=== PATIENT | female | born 1995 | race Caucasian/White ===

== ENCOUNTER 2019-07-03 15:59 | Outpatient (CLI) | payer OTHER, MEDICAID, SELFPAY ==
[2019-07-03 16:16] VITALS: BP 130/82; PULSE 111
[2019-07-03 16:30] VITALS: BP 124/74; PULSE 118
[2019-07-03 16:45] VITALS: BP 120/82; PULSE 122
[2019-07-03 16:51] VITALS: BP 124/74; PULSE 112
== END 2019-07-03 16:55 | disposition home or self-care (01) ==
LOC: ANHOBOP 16:10 → ANHOBPP 16:10
PROVIDERS: PCP Internal Medicine; Visit Provider Advanced Practice Midwife
DX: O41.8X90 Other specified disorders of amniotic fluid and membranes, unspecified trimester, not applicable or unspecified (principal)
CPT/HCPCS: 59025; 84112; 99199

== ENCOUNTER 2019-07-22 23:37 | Observation (INO) | payer OTHER, MEDICAID, SELFPAY ==
--- NOTE | 2019-07-22 23:37 | OBADM ---
This patient, Jyoti Amor, admitted to the OB room OB Post 116 for observation. Patient/family oriented to hospital policies and general routines including ID bracelet, bed and alarms, visiting hours, pain management, procedures, bathroom and other care routines, personal items, smoking policy, room service/diet, and visiting hours. Patient/Family are encouraged to report perceived risks to care and to ask questions if they do not understand what they are told or what they should do.
[2019-07-22 23:57] VITALS: BP 126/79; PULSE 110; TEMP 36.5
[2019-07-23] VITALS: BP 123/86; PULSE 111; BMI 41.1
[2019-07-23 00:30] VITALS: BP 122/81; PULSE 107
[2019-07-23 00:54] LABS: Add Urine Microscopic? YES; Appearance Urine Cloudy (Clear); Bacteria Urine Trace /hpf; Bilirubin Urine Negative (Negative); Blood Urine Negative (Negative); Color Urine Yellow (Yellow); Glucose Urine UA Negative (Negative); Ketones Urine 1+ mg/dL (Negative); Leukocyte Esterase Ur 3+ LEU/UL (Negative); Mucus Urine Few /lpf; Nitrate Urine Negative (Negative); Protein Urine 1+ mg/dL (Negative); RBC Urine 0-2 /hpf (0-2); Specific Grav Ur 1.021 (1.001-1.035); Squamous Epithelial Cell Urine Many /hpf (Few)
[2019-07-23 01:00] VITALS: BP 125/91; PULSE 107
--- NOTE | 2019-07-23 02:01 | PC.NURSE ---
Dr. Lemos reviewed strip and report given regarding contractions. pt not feeling pain with contractions. Dr. lemos states may discharge to home if pt does not have pain.
--- NOTE | 2019-07-27 07:45 | PM.OBTRLD ---
OB - Triage/Final Diagnosis Evaluation Laboratory results: Laboratory Tests 07/23/19 00:34 Urine Color Yellow Urine Appearance Cloudy H Urine pH 6.0 Ur Specific [place] 1.021 Urine Protein 1+ H Urine Glucose (UA) Negative Urine Ketones 1+ H Ur Blood (Man) Negative Urine Nitrate Negative Urine Bilirubin Negative Urine Urobilinogen 2.0 H Leukocyte Esterase Rfl 3+ H Urine RBC 0-2 Urine WBC 10-15 H Ur Squamous Epith Cells Many H Urine Bacteria Trace Urine Mucus Few H Final Diagnosis (1) contractions: Code(s): O47.9 - False labor, unspecified Status: Acute
== END 2019-07-23 01:50 | disposition home or self-care (01) ==
PROVIDERS: Admitting Provider Obstetrics & Gynecology; PCP Internal Medicine; Visit Provider Obstetrics & Gynecology
DX: O47.9 False labor, unspecified (principal); Z3A.00 Weeks of gestation of pregnancy not specified; Z79.899 Other long term (current) drug therapy
CPT/HCPCS: 81001; 87086; 87088; G0378; G0379

== ENCOUNTER 2019-08-24 06:25 | Inpatient (IN) | payer OTHER, MEDICAID, SELFPAY ==
[2019-08-24] VITALS (171 sets, daily range): BP systolic 95–156; BP diastolic 46–107; PULSE 60–227; RESP 16; TEMP 36.5–38.1; O2SAT 85–100; BMI 41.8
--- NOTE | ~2019-08-24 | US_ITS ---
EXAMINATION: US OB limited DATE: 08/25/2019 05:37 INDICATION: Retained placenta TECHNIQUE: Real-time ultrasound of the pelvis was performed. The interpreting radiologist was not pre sent for the study. COMPARISON: None. FINDINGS: Enlarged uterus consistent with state. The endometrial complex is thickened measuring 18 m m and heterogeneous, predominantly hypoechoic with a few hyperechoic foci. No vascular flow identifie d within the endometrial complex and color Doppler. IMPRESSION: 1. Continued heterogeneous endometrial complex without internal vascular flow on color Doppler with d ifferential including retained products of conception or clot. Reviewed, dictated and finalized at location A. IMPRESSION: 1. Continued heterogeneous endometrial complex without internal vascular flow o n color Doppler with differential including retained products of conception or clot.
[2019-08-24] MEDS: LACTATED RINGERS 1,000 ML 125 ML IV CONT ×3 (07:26→14:42)
[2019-08-24] MEDS: OXYTOCIN 30 UNITS/NS 500 ML 30 UNITS/500 ML BAG 6 UNITS IV CONT (07:27)
[2019-08-24 07:34] LABS: Basophils Percent Auto 0.4 % (0.2-1.2); Eosinophils Absolute Auto 0.1 K/mm3 (0-0.3); Eosinophils Percent Auto 0.6 % (0-4.4); Hematocrit 35.9 % (37.0-47.0); Hemoglobin 11.6 g/dL (12.0-15.0); Lymphocytes Absolute Auto 2.62 K/mm3 (0.9-3.2); Mean Corpuscular HGB Conc 32.3 g/dl (32-36); Mean Corpuscular Hemoglobin 26.3 pg (26-34); Mean Corpuscular Volume 81.4 fl (80-100); Mean Platelet Volume 12.2 fl (7.4-10.4); Monocytes Absolute Auto 0.8 K/mm3 (0.1-0.6); Monocytes Percent Auto 7.5 % (2.6-8.5); Neutrophils Absolute Auto 6.9 K/mm3 (1.3-6.7); Neutrophils Percent Auto 65.5 % (45.5-73.1); Platelet Count Result 239 k/mm3 (150-375); Red Blood Count 4.41 M/mm3 (4.2-5.4); White Blood Count 10.5 K/mm3 (4.5-10.0)
--- NOTE | 2019-08-24 07:59 | LDADM ---
This patient, Jyoti Amor, was admitted to Labor/Delivery/Recovery 105 on 08/24/19 at 06:25. Plans for labor, pain management and were discussed with patient. Patient/family oriented to hospital policies and general routines including ID bracelet, bed and alarms, visiting hours, pain management, procedures, bathroom and other care routines, personal items, smoking policy, room service/diet and guest tray routines, security routines, call light, and visiting hours. Patient/Family are encouraged to report perceived risks to care and to ask questions if they do not understand what they are told or what they should do. See OBIX for further documentation.
--- NOTE | 2019-08-24 08:12 | WPDOBADMIT ---
Obstetrics - Admit Note Admission Note: 24 y/o G1 here for elective induction of labor AROM performed. Clear odorless fluid Cervix record reviewed. No pertinent additions to the history and/or any subsequent changes in the physical findings that are not consistent with the expected course of the were found. Additions to the history and/or subsequent changes in the physical findings follow. None.
--- NOTE | 2019-08-24 09:20 | P.PNAN_ITS ---
Anes - Eval Pre Procedure Procedure: Labor epidural Date/Time: 08/24/19 09:20 Surgeon: Toño Schaefer M.D. Preop Diagnosis: pain during labor Pre Op Diagnosis: INDUCTION OF LABOR Patient Data Age: 24 Gender: F Height: 1.67 m Weight: 116.7 kg Last Vital Signs Pulse 111 H 08/24/19 09:19 BP 142/93 H 08/24/19 09:19 Allergies Allergy/AdvReac Type Severity Reaction Status Date / Time Penicillins Allergy Hives Verified 08/03/19 14:31 Home Medications Medication Instructions Recorded Confirmed Type PNV cmb#95-ferrous fumarate-FA 1 tablet PO DAILY 07/23/19 07/23/19 History [] Laboratory Tests 08/24/19 08/24/19 08/24/19 07:21 07:21 07:21 WBC 10.5 K/mm3 H K/mm3 (4.5-10.0) RBC 4.41 M/mm3 M/mm3 (4.2-5.4) Hgb 11.6 g/dL L g/dL (12.0-15.0) Hct 35.9 % L % (37.0-47.0) MCV 81.4 fl fl (80-100) MCH 26.3 pg pg (26-34) MCHC 32.3 g/dl g/dl (32-36) RDW 14.0 % % (11.5-14.5) Plt Count 239 k/mm3 k/mm3 (150-375) MPV 12.2 fl H fl (7.4-10.4) Immature Gran % (Auto) 1.0 % H % (0-0.5) Neut % (Auto) 65.5 % % (45.5-73.1) Lymph % (Auto) 25.0 % % (18.3-44.2) [place] % (Auto) 7.5 % % (2.6-8.5) Eos % (Auto) 0.6 % % (0-4.4) Baso % (Auto) 0.4 % % (0.2-1.2) Lymph # (Auto) 2.62 K/mm3 K/mm3 (0.9-3.2) [place] # (Auto) 0.8 K/mm3 H K/mm3 (0.1-0.6) Eos # (Auto) 0.1 K/mm3 K/mm3 (0-0.3) Baso # (Auto) 0.0 K/mm3 K/mm3 (0.0-0.1) Abs Immat Gran (auto) 0.10 K/mm3 H K/mm3 (0.00-0.031) Absolute Neuts (auto) 6.9 K/mm3 H K/mm3 (1.3-6.7) Absolute Nucleated RBC 0.0 K/mm3 K/mm3 (0.0-0.012) Nucleated RBC % 0.0 % % (0.0-0.2) RPR Pending Blood Type O Positive Antibody Screen Negative Patient hx anesthesia problems: none Family hx anesthesia problems: none PMFSH Past Medical History Medical History (Updated 08/24/19 @ 09:21 by Nahed Joe CRNA) IUP (intrauterine ), incidental Morbid obesity with BMI of 40.0-44.9, adult Family History Family History (Updated 08/03/19 @ 14:32 by Kristin Anand RN) Father Throat cancer Hypertension Grandparent Diabetes mellitus Social History Social History Smoking status: Never smoker Substance use: never Gender identity (if verbalized by the patient): Female Spiritual care concerns: No Exam Day of Procedure 08/24/19 09:20
[2019-08-24] MEDS: CLINDAMYCIN 900 MG/NS 50 ML 900 MG/50 ML PIGGYBACK 50 MG IVPB (21:48)
--- NOTE | 2019-08-24 23:40 | PM.OBPRVD ---
OB - Delivery Note Procedure Delivery date: 08/24/19 Intrapartal events: None Induction method: per pitocin protocol Delivery monitor: external FHT and external uterine Route of delivery: Episiotomy description: None Laceration description: None Estimated blood loss (mL): 312 Anesthesia type: Epidural [place] Baby Date of : 08/24/19 Time of : 23:21 Weeks of gestation at delivery: 40 Infant gender: Female Weight (pounds): 9 Weight (ounces): 11 presentation: vertex position: Left Occiput Anterior Placenta delivery description: Spontaneous score one minute: 8 score five minutes: 9 Narrative: Mother and baby in stable condition. Cord clamped at 3 minutes. Cord gasses collected and handed off to staff.
[2019-08-24] MEDS: OXYTOCIN 30 UNITS/NS 500 ML 30 UNITS/500 ML BAG 125 UNITS IV CONT (23:50)
[2019-08-25] VITALS (17 sets, daily range): BP systolic 102–136; BP diastolic 64–89; PULSE 96–120; RESP 16–20; TEMP 36.3–37; O2SAT 77–100
[2019-08-25] MEDS: BENZOCAINE 20% AER SPR (*SP) 56 GM CAN 1 SPRAY TOPICAL (01:34)
[2019-08-25] MEDS: WITCH HAZEL 40 PADS 1 PAD TOPICAL (01:34)
[2019-08-25] MEDS: IBUPROFEN 600 MG TABLET PO ×3 (01:34→15:57)
--- NOTE | 2019-08-25 02:08 | OBPPTRN ---
Patient transferred to post room #285 via wheelchair with baby in bassinet. Support person present. Oriented to unit, room, information board, rooming in, admission packet and security measures. Patient verbalizes understanding.
[2019-08-25 04:36] LABS: Mean Corpuscular HGB Conc 30.8 g/dl (32-36); Mean Corpuscular Hemoglobin 26.2 pg (26-34); Mean Platelet Volume 11.5 fl (7.4-10.4); Platelet Count Result 154 k/mm3 (150-375); Red Blood Count 2.14 M/mm3 (4.2-5.4); Red Cell Distribution Width 14.2 % (11.5-14.5); White Blood Count 13.6 K/mm3 (4.5-10.0)
[2019-08-25 04:40] LABS: Hematocrit 18.2 % (37.0-47.0); Hemoglobin 5.6 g/dL (12.0-15.0)
[2019-08-25 04:46] LABS: INR 1.3; Prothrombin Time 16.1 Seconds (11.1-14.7)
[2019-08-25 04:47] LABS: Partial Thromboplastin Time 28.7 SECONDS (22.3-36.8)
--- NOTE | 2019-08-25 04:49 | WPDPN ---
Progress Note: A&P Assessment and Plan (1) hemorrhage: Code(s): O72.1 - Other immediate hemorrhage Status: Acute Assessment and Plan: Preliminary hemoglobin 5.6. Patient agrees to blood transfusion. Type and cross and transfuse 2 units PRBCs. Repeat H&H since it was drawn through IV site (possibly diluted), although her QBL total is 1623. Most likely her true blood count is lower than current labs will show, so she likely does need transfusion. Check ultrasound to look for retained POCs, although most likely bleeding due to uterine atony. Review of Systems Review of Systems: All systems reviewed & are unremarkable except as noted in HPI and below (HPI) Exam Const: General: no acute distress and uncomfortable Resp: Auscultation: clear to auscultation bilaterally Cardio: Rate: tachycardic Rhythm: regular rhythm GI: Inspection: non-distended GI Palp: Yes Soft to palpation and No Tenderness to palpation present (GI) Other: Uterine fundus firm and 2-3 cm below umbilicus : Speculum Exam - Vagina: No vaginal bleeding Other: No active bleeding once I arrived. No gush or even trickle with fundal massage Extrem: General: no edema Psych: Mental Status: mental status grossly normal Objective Data Vital Signs Vital Signs: Vital Signs - 24 hr 08/24/19 06:53 08/24/19 07:00 08/24/19 07:01 Temperature 36.6 C Pulse Rate 126 H 126 H Blood Pressure 135/89 135/83 Pulse Oximetry 08/24/19 07:31 08/24/19 08:31 08/24/19 08:50 Temperature 36.6 C Pulse Rate 114 H 109 H Blood Pressure 132/93 H 129/98 H Pulse Oximetry 08/24/19 09:01 08/24/19 09:19 08/24/19 09:31 Temperature Pulse Rate 113 H 111 H 107 H Blood Pressure 129/93 H 142/93 H 135/93 H Pulse Oximetry 08/24/19 09:43 08/24/19 10:01 08/24/19 10:31 Temperature 36.5 C Pulse Rate 107 H 105 H Blood Pressure 137/96 H 142/85 H Pulse Oximetry 08/24/19 11:01 08/24/19 11:31 08/24/19 12:01 Temperature Pulse Rate 109 H 134 H 100 Blood Pressure 147/107 H 129/81 113/71 Pulse Oximetry 08/24/19 13:01 08/24/19 13:45 08/24/19 13:57 Temperature Pulse Rate 120 H 98 Blood Pressure 141/85 H 148/88 H Pulse Oximetry 100 08/24/19 14:01 08/24/19 14:02 08/24/19 14:13 Temperature 36.7 C Pulse Rate 101 H Blood Pressure 147/92 H Pulse Oximetry 100 99 08/24/19 14:14 08/24/19 14:18 08/24/19 14:20 Temperature Pulse Rate 126 H 101 H Blood Pressure 145/84 H 127/91 H Pulse Oximetry 100 08/24/19 14:21 08/24/19 14:23 08/24/19 14:25 Temperature Pulse Rate 100 101 H 102 H Blood Pressure 126/87 140/86 156/84 H Pulse Oximetry 100 08/24/19 14:27 08/24/19 14:28 08/24/19 14:29 Temperature Pulse Rate 106 H 98 Blood Pressure 133/81 134/88 Pulse Oximetry 100 08/24/19 14:31 08/24/19 14:33 08/24/19 14:35 Temperature Pulse Rate 102 H 103 H 108 H Blood Pressure 134/80 132/79 125/74 Pulse Oximetry 100 08/24/19 14:37 08/24/19 14:38 08/24/19 14:39 Temperature Pulse Rate 114 H 121 H Blood Pressure 122/63 118/59 L Pulse Oximetry 100 08/24/19 14:41 08/24/19 14:43 08/24/19 14:45 Temperature Pulse Rate 115 H 119 H 117 H Blood Pressure 111/58 L 121/56 L 113/57 L Pulse Oximetry 100 08/24/19 14:47 08/24/19 14:48 08/24/19 14:49 Temperature Pulse Rate 121 H 115 H Blood Pressure 112/60 107/57 L Pulse Oximetry 99 08/24/19 14:51 08/24/19 14:53 08/24/19 14:55 Temperature Pulse Rate 117 H 120 H 123 H Blood Pressure 116/46 L 108/59 L 106/61 Pulse Oximetry 100 08/24/19 14:57 08/24/19 14:58 08/24/19 14:59 Temperature Pulse Rate 117 H 112 H Blood Pressure 113/60 108/57 L Pulse Oximetry 100 08/24/19 15:01 08/24/19 15:03 08/24/19 15:05 Temperature Pulse Rate 112 H 114 H 113 H Blood Pressure 107/54 L 107/60 95/52 L Pulse Oximetry 100 08/24/19 15:07 08/24/19 15:08 08/24/19 15:09 Te
[2019-08-25 04:54] LABS: Hematocrit 25.1 % (37.0-47.0); Hemoglobin 7.9 g/dL (12.0-15.0); Mean Corpuscular HGB Conc 31.5 g/dl (32-36); Mean Corpuscular Hemoglobin 26.2 pg (26-34); Mean Corpuscular Volume 83.1 fl (80-100); Mean Platelet Volume 11.8 fl (7.4-10.4); Platelet Count Result 199 k/mm3 (150-375); Red Blood Count 3.02 M/mm3 (4.2-5.4); Red Cell Distribution Width 14.3 % (11.5-14.5); White Blood Count 17.3 K/mm3 (4.5-10.0)
--- NOTE | 2019-08-25 05:03 | PC.NURSE ---
0330: while urinating, patient passed large clot into toilet. weighed 183g. charge nurse alerted 0350: pt felt rectal pressure; and asked for help to bathroom ; while urinating, another clot was passed (184g); called Priyanka Cardenas RN to bathroom. patient fainted while on toilet; revived with ammonia and helped back to bed. Team OB summoned at this time 0405 fundal massage; Clots expressed by OB nurse 0409 Fentanyl 100 0409 Pit opened to 500ml/hr, NS started at 999 ml/hr 0411 methergine IM .2mg 0416 523g clots removed 0420 O2 sat 100, HR 130 0426 130/86 O2 sat 97%, HR 105, 0426 labs drawn Left AC 0428 warm blankets 0435 pad/towel: 142g 0434 Dr Lemos arrived. 0435 127/82, HR 116, O@ 97% 0444 Redraw labs 0448 Labs reordered, US ordered, 2 units PRBC ordered
--- NOTE | 2019-08-25 05:03 | PC.NURSE ---
0405- called Kayleen Pierce CNMW- pt passing large blood clots and continuing to bleed, nurse at bedside. Order for CBC, PT, PTT/INR received. notify Dr. Lemos. 408- called Dr. Lemos- informed of situation, order received for US for retained placenta STAT. Dr. Lemos coming in to evaluate pt. [phone]- called [facility]- [employer] Switchboard Operator- she will call US to have them come in for bedside US STAT to check for retained placenta.
[2019-08-25 05:05] LABS: INR 1.1; Prothrombin Time 13.9 Seconds (11.1-14.7)
[2019-08-25 05:07] LABS: Partial Thromboplastin Time 25.9 SECONDS (22.3-36.8)
[2019-08-25] MEDS: SODIUM CHLORIDE 0.9% IV 1,000 ML 150 ML (05:21)
--- NOTE | 2019-08-25 08:49 | WPDANLDPN2 ---
Anes-Prog Note L&D Date/Time: 08/25/19 08:49 Comfortable throughout: labor and delivery Neuraxial method: epidural Epidural/Spinal procedure site: clean & non-tender Neuro status: Neuro function grossly intact. Cardiovascular status: normal Respiratory status: normal Airway patency: baseline Mental status: baseline Post-Op hydration status: normal Vital Signs: Last Vital Signs Temp 98.3 F 08/24/19 22:19 Pulse 116 H 08/25/19 04:35 BP 127/82 08/25/19 04:35 Pulse Ox 97 08/25/19 04:35 I/O: Intake & Output 08/24/19 08/25/19 08/25/19 23:59 07:59 15:59 Intake Total 1650 Output Total 1305 Balance 1650 -1305 Post-procedural complaints: none Patient feedback: Patient satisfied with anesthetic care.
[2019-08-25] MEDS: MULTIVIT/MIN/PREN/FOL AC/IRON TABLET 1 TAB PO (09:28)
[2019-08-25] MEDS: DOCUSATE SODIUM 100 MG CAPSULE PO ×2 (09:28→15:57)
[2019-08-25] MEDS: POLYSACCHARIDE IRON COMPLEX 150 MG CAPSULE PO ×2 (09:28→15:57)
[2019-08-25 10:46] LABS: Rapid Plasma Reagin Non-Reactive (NonReactive)
[2019-08-25] MEDS: LANOLIN (LANSINOH) 7.5 GM CREAM 1 APPLIC TOPICAL (15:59)
--- NOTE | 2019-08-25 17:04 | PC.NURSE ---
Pt received 2 units of blood today; No problems during the transfusion, and pt reports feeling much better. She has been up to the bathroom, and is asymptomatic, doing well.
[2019-08-25 19:23] LABS: Hemoglobin 8.4 g/dL (12.0-15.0)
[2019-08-26 08:00] VITALS: BP 121/82; PULSE 95; RESP 18; TEMP 36.6
[2019-08-26] MEDS: BENZOCAINE 20% AER SPR (*SP) 56 GM CAN 1 SPRAY TOPICAL (08:53)
[2019-08-26] MEDS: WITCH HAZEL 40 PADS 1 PAD TOPICAL (08:53)
[2019-08-26] MEDS: POLYSACCHARIDE IRON COMPLEX 150 MG CAPSULE PO ×2 (08:53→16:37)
[2019-08-26] MEDS: DOCUSATE SODIUM 100 MG CAPSULE PO ×2 (08:54→16:37)
[2019-08-26] MEDS: IBUPROFEN 600 MG TABLET PO ×2 (08:54→14:23)
--- NOTE | 2019-08-26 10:35 | P.PNOB_ITS ---
OB - PN: Subj Subjective Date/time seen: 08/26/19 10:35 OB - PN: Obj Data Labs CBC & Chem 7: 08/25/19 19:15 Labs: Laboratory Results - last 24 hr 08/24/19 08/24/19 08/25/19 07:21 07:21 19:15 Hgb 8.4 L Hct 26.0 L RPR Non-reactive Blood Type O Positive Antibody Screen Negative Crossmatch See Detail OB - PN A/P Plan day: 2 Plan: routine care and discharge home (Follow up in 4 weeks. ) Comments: Bleeding precautions and post pph precautions discussed. Time Spent With Patient Time: Total time spent is greater than 50% in coordination of care (as documente d) at patient's floor/unit and/or counseling patient: Time with patient: less than 15 minutes Review of Systems Review of Systems: All systems reviewed & are unremarkable except as noted in HPI and below Exam Narrative: Exam Narrative: Pt ambulating w/o difficulty. No c/o feeling light headed or dizzy. Flow is controlled. Fundus firm. Const: General: comfortable Chest: Breast/axilla inspection: normal inspection of the breasts Resp: Effort & Inspection: normal respiratory effort Cardio: Rate: regular rate GI: Auscultation: normal bowel sounds Psych: Appearance: grossly normal Affect: normal affect Attitude: cooperative Judgement: Good judgement present (Psych)
--- NOTE | 2019-08-26 12:00 | PC.NURSE ---
Patient viewed the discharge video Mother & Baby Care, The First Two Weeks . Patient was given the opportunity and encouraged to ask questions. Patient verbalized understanding of information shared and has been given the mother/baby guide for home reference.
--- NOTE | 2019-08-26 14:45 | PC.NURSE ---
Self care and infant care discharge instructions given including follow up visit date and time. Very pleasant and cooperative. No questions or concerns verbalized. FOB at side.
[2019-08-26] MEDS: MEASLES,MUMPS,RUBELLA VACCINE 0.5 ML VIAL SUB-Q (16:37)
[2019-08-28 08:43] VITALS: BP 139/82; PULSE 98; RESP 20; TEMP 37.3; O2SAT 100
--- NOTE | 2019-09-08 12:11 | PM.OBDSVD ---
DS: Admitting Diagnosis Admitting Diagnosis Admitting Diagnosis: Encounter for supervision of normal , unspecified, third trimester OB - DS: Summary OB Procedures : None OB Procedures Intrapartum: Spontaneous Vag Delivery OB Procedures: : Transfusion (PP Hemorrhage) and Other Time Spent with Patient Time attestation: Total time spent providing and/or coordinating discharge services: Discharge Plan Discharge Attending physician on discharge: Kayleen Pierce Consulting providers: Kayleen Pierce ; [place] Discharging Clinician: Kayleen Pierce Patient Disposition: Home, Self-Care Activity: may drive after 2 weeks and pelvic rest Diet: as tolerated Discharge Instructions: Education: Mom and Baby Guide Given to: Mother Follow-Up: Call your delivering provider's office for an appointment to be seen in: 1 Week Mom and baby should come to the [facility] for the follow-up appointment. Appointment Date/Time: August 28, 2019 at 10:00 am What to expect at your follow-up visit: Blood Pressure Check Physical Assessment Call [phone] if you are unable to keep your appointment time. BREAST CARE: 1. Wear a snug supportive bra. 2. For engorgement discomfort: Breast Feeding: A. Apply warm moist washcloths B. Express milk as needed to relieve engorgement C. Wear loose clothing Bottle Feeding: A. May apply ice packs 3. For sore nipples: A. Identify correct latch-on B. Apply warm moist washcloths before and after nursing C. Air dry nipples after nursing D. May apply Lansinoh cream to nipples ABDOMINAL INCISION: (if applicable) 1. Allow incision to air dry 2. Do NOT use lotions for powders on your incision 3. When showering, allow soap and water to run over the incision, but do not wash incision EPISIOTOMY/PERINEAL CARE: 1. Until bleeding stops, use your sofiya bottle after urinating 2. Change your pad frequently throughout the day 3. You may take sitz baths several times a day (fill your bathtub with warm water and soak for 20 minutes.) Do NOT bathe in the water 4. No tub baths until seen by your physician - You may shower ACTIVITY: 1. Rest as much as possible. 2. Do not exercise or lift anything heavier than your baby (such as laundry or other children.) 3. Avoid stairs or driving as much as possible. 4. Do not put anything into the vagina. No douching, tampons, or sexual activity until seen by physician. NOTIFY PHYSICIAN IF YOU HAVE ANY QUESTIONS OR IF ANY OF THE FOLLOWING SYMPTOMS OCCUR: 1. If your episiotomy becomes red, swollen, or more painful than what you have experienced in the hospital. 2. If your vaginal bleeding becomes foul smelling. 3. If your vaginal bleeding becomes more heavy than a period or if your bleeding changes from pink to bright red. However, you may pass an occasional walnut-sized clot once or twice for the first week . 4. If you experience a sharp, shooting pain in you calves. 5. If you discover a hard, reddened area on your breast or if you experience flu-like symptoms. DIET: 1. Eat regular, well-balanced meals. 2. Drink plenty of fluids daily. If , drink to thirst. Patient Instructions: Antibiotic Form Stand Alone Forms: General Discharge Information Follow-up/Referrals: Kayleen Pierce CNM [Certified Nurse Restaurant Line Server] - Discharge Medications: New polysaccharide iron complex 150 mg iron Capsule 150 mg PO BIDWM Qty: 60 RF: 0 Continued PNV cmb#95-ferrous fumarate-FA [] 28 mg iron- 800 mcg Tablet 1 tablet PO DAILY RF: 0 Date of admission: 08/24/19 06:25 Primary Care Provider: Stanley Patrick Admitting Provider: Rory Schaefer Discharge Date/Time: 08/26/19 16:53 Attending physician on admission: Rory Schaefer
== END 2019-08-26 16:53 | disposition home or self-care (01) | DRG 806 ==
LOC: ANHLDR 06:35 → ANHOB2 08-25 02:18
PROVIDERS: Obstetrics & Gynecology; Admitting Provider Obstetrics & Gynecology; PCP Internal Medicine; Visit Provider Obstetrics & Gynecology
DX: O99.214 Obesity complicating childbirth (principal); O75.2 Pyrexia during labor, not elsewhere classified; Z37.0 Single live birth; Z3A.39 39 weeks gestation of pregnancy; E66.01 Morbid (severe) obesity due to excess calories; O72.1 Other immediate postpartum hemorrhage
CPT/HCPCS: 36415; 36430; 76815; 85014; 85018; 85025; 85027; 85610; 85730; 86592; 86850; 86900; 86901; 86923; 90710; A9270; J0131; J2210; J2590; J2795; J3010; J7030; J7120; P9016

== ENCOUNTER 2019-08-29 18:15 | Observation (INO) | payer OTHER, MEDICAID, SELFPAY ==
--- NOTE | 2019-08-29 18:16 | PC.NURSE ---
samm nim called unit and stated to run pi labs on pt upon pt arrival and to call cnm w results.
[2019-08-29 19:00] VITALS: BP 131/81; PULSE 79; TEMP 37.1
[2019-08-29 19:38] LABS: Basophils Percent Auto 0.3 % (0.2-1.2); Eosinophils Absolute Auto 0.1 K/mm3 (0-0.3); Eosinophils Percent Auto 1.4 % (0-4.4); Hematocrit 26.9 % (37.0-47.0); Hemoglobin 8.4 g/dL (12.0-15.0); Immature Granulocyte Absolute 0.62 K/mm3 (0.00-0.031); Immature Granulocyte Percent A 6.3 % (0-0.5); Lymphocytes Absolute Auto 2.09 K/mm3 (0.9-3.2); Lymphocytes Percent Auto 21.1 % (18.3-44.2); Mean Corpuscular HGB Conc 31.2 g/dl (32-36); Mean Corpuscular Hemoglobin 27.5 pg (26-34); Mean Corpuscular Volume 87.9 fl (80-100); Mean Platelet Volume 10.3 fl (7.4-10.4); Monocytes Absolute Auto 0.6 K/mm3 (0.1-0.6); Monocytes Percent Auto 6.5 % (2.6-8.5); Neutrophils Absolute Auto 6.4 K/mm3 (1.3-6.7); Neutrophils Percent Auto 64.4 % (45.5-73.1); Nucleated Red Blood Cells Absolute Auto 0.1 K/mm3 (0.0-0.012); Nucleated Red Blood Cells Perc 0.6 % (0.0-0.2); Platelet Count Result 343 k/mm3 (150-375); Red Blood Count 3.06 M/mm3 (4.2-5.4); Red Cell Distribution Width 16.9 % (11.5-14.5); White Blood Count 9.9 K/mm3 (4.5-10.0)
[2019-08-29 19:51] LABS: Alanine Aminotransferase 73 U/L (4-35); Albumin Level 3.4 g/dL (3.5-5.1); Alkaline Phosphatase 115 U/L (38-126); Aspartate Amino Transferase 72 U/L (14-36); Bilirubin,Total < 0.1 mg/dL (0.2-1.3); Blood Urea Nitrogen 10 mg/dL (7-17); Calcium 8.7 mg/dL (8.4-10.2); Carbon Dioxide 22 mmol/L (22-30); Chloride 111 mmol/L (98-107); Estimated Glomerular Filt Rate > 60; Glucose 91 mg/dL (65-105); Potassium 4.2 mmol/L (3.4-5.0); Sodium 139 mmol/L (137-145)
[2019-08-29 19:52] LABS: Anisocytosis 2+ (NORMAL); Hypochromasia 1+ (NORMAL); Platelet Estimate Adequate (Adequate)
[2019-08-29 20:01] LABS: Add Urine Microscopic? YES; Appearance Urine Cloudy (Clear); Bacteria Urine Trace /hpf; Bilirubin Urine Negative (Negative); Blood Urine 3+ (Negative); Color Urine Yellow (Yellow); Glucose Urine UA Negative (Negative); Ketones Urine Negative (Negative); Leukocyte Esterase Ur 3+ LEU/UL (NEGATIVE); Mucus Urine Rare /lpf; Nitrate Urine Negative (Negative); Protein Urine Negative (Negative); RBC Urine 51-75 /hpf (0-2); Specific Grav Ur 1.012 (1.001-1.035); Squamous Epithelial Cell Urine Moderate /hpf (Few); Urobilinogen Urine Negative mg/dL (<2.0); WBC Urine 21-30 /hpf (0-3)
[2019-08-29 20:03] LABS: Creatinine Urine 54.4 mg/dL; Total Protein Urine Random 21 mg/dL
[2019-08-29 21:00] VITALS: BP 142/100; PULSE 92
[2019-08-29 21:34] VITALS: BP 135/93; PULSE 76
[2019-08-29 22:00] VITALS: BP 134/96; PULSE 90
[2019-08-29 22:30] VITALS: BP 140/89; PULSE 78
[2019-08-30 02:15] VITALS: BP 133/78; PULSE 84
[2019-08-30 02:30] LABS: Basophils Percent Auto 0.4 % (0.2-1.2); Eosinophils Absolute Auto 0.2 K/mm3 (0-0.3); Eosinophils Percent Auto 1.5 % (0-4.4); Hematocrit 25.9 % (37.0-47.0); Immature Granulocyte Absolute 0.47 K/mm3 (0.00-0.031); Immature Granulocyte Percent A 4.7 % (0-0.5); Lymphocytes Absolute Auto 2.82 K/mm3 (0.9-3.2); Mean Corpuscular HGB Conc 30.9 g/dl (32-36); Mean Corpuscular Hemoglobin 27.5 pg (26-34); Mean Platelet Volume 10.2 fl (7.4-10.4); Monocytes Absolute Auto 0.7 K/mm3 (0.1-0.6); Monocytes Percent Auto 7.1 % (2.6-8.5); Neutrophils Absolute Auto 5.9 K/mm3 (1.3-6.7); Neutrophils Percent Auto 58.3 % (45.5-73.1); Nucleated Red Blood Cells Perc 0.4 % (0.0-0.2); Platelet Count Result 315 k/mm3 (150-375); Red Blood Count 2.91 M/mm3 (4.2-5.4); Red Cell Distribution Width 16.8 % (11.5-14.5); White Blood Count 10.1 K/mm3 (4.5-10.0)
[2019-08-30 02:43] LABS: Alanine Aminotransferase 66 U/L (4-35); Albumin Level 3.3 g/dL (3.5-5.1); Alkaline Phosphatase 109 U/L (38-126); Aspartate Amino Transferase 61 U/L (14-36); Bilirubin,Total < 0.1 mg/dL (0.2-1.3); Blood Urea Nitrogen 11 mg/dL (7-17); Calcium 8.6 mg/dL (8.4-10.2); Carbon Dioxide 23 mmol/L (22-30); Chloride 109 mmol/L (98-107); Estimated Glomerular Filt Rate > 60; Glucose 85 mg/dL (65-105); Potassium 3.8 mmol/L (3.4-5.0); Sodium 139 mmol/L (137-145); Uric Acid 5.3 mg/dL (2.5-7.5)
[2019-08-30 07:55] VITALS: RESP 20; TEMP 37.2
[2019-08-30 07:56] VITALS: BP 128/90; PULSE 91
--- NOTE | 2019-08-30 08:36 | PM.IMHP ---
H&P: HPI History of Present Illness Chief complaint: PP PIH Narrative: Jyoti Amor is a 24 year old female who presented with headache. She was found to have elevated blood pressure with elevated ast/alt. Review of Systems Review of Systems: All systems reviewed & are unremarkable except as noted in HPI and below PMFSH Past Medical History Medical History IUP (intrauterine ), incidental Morbid obesity with BMI of 40.0-44.9, adult Family History Family History Father Throat cancer Hypertension Grandparent Diabetes mellitus Social History Social History (System 08/25/19 @ 13:47 by Jewell Boswell) Smoking status: Never smoker Substance use: never Gender identity (if verbalized by the patient): Female Spiritual care concerns: No Meds Home Medications and Allergies Home Medications Medication Instructions Recorded Confirmed Type PNV cmb#95-ferrous fumarate-FA 1 tablet PO DAILY 07/23/19 07/23/19 History [] polysaccharide iron complex 150 mg PO BIDWM #60 cap 08/26/19 Rx Allergies Allergy/AdvReac Type Severity Reaction Status Date / Time Penicillins Allergy Hives Verified 08/25/19 13:47 Vital Signs Vital Signs - 24 hr 08/29/19 19:00 08/29/19 21:00 08/29/19 21:34 Temperature 98.8 F Pulse Rate 79 92 76 Blood Pressure 142/100 H 135/93 H Blood Pressure [Right Arm] 131/81 08/29/19 22:00 08/29/19 22:30 08/30/19 02:15 Temperature Pulse Rate 90 78 84 Blood Pressure 134/96 H 140/89 133/78 Blood Pressure [Right Arm] 08/30/19 07:56 Temperature Pulse Rate 91 Blood Pressure 128/90 Blood Pressure [Right Arm] Exam Const: General: no acute distress Neck: Neck: supple and no JVD Resp: Effort & Inspection: normal respiratory effort Auscultation: clear to auscultation bilaterally Skin: General skin exam: normal color Neuro: General: gait normal and deep tendon reflexes 2+ bilaterally Cognition (Neuro): normal cognition Speech: normal speech Extrem: General: normal to inspection Psych: Mental Status: mental status grossly normal Affect: normal affect H&P: Results Labs Labs: Short CBC 08/29/19 08/30/19 Range/Units 19:30 02:23 WBC 9.9 10.1 H (4.5-10.0) K/mm3 Hgb 8.4 L 8.0 L (12.0-15.0) g/dL Hct 26.9 L 25.9 L (37.0-47.0) % Plt Count 343 D 315 (150-375) k/mm3 BMP 08/29/19 08/30/19 19:30 02:23 Sodium 139 139 Potassium 4.2 3.8 Chloride 111 H 109 H Carbon Dioxide 22 23 BUN 10 11 Creatinine 0.60 L 0.60 L Glucose 91 85 Calcium 8.7 8.6 Liver Function 08/29/19 08/30/19 Range/Units 19:30 02:23 Total Bilirubin < 0.1 L < 0.1 L (0.2-1.3) mg/dL AST 72 H 61 H (14-36) U/L ALT 73 H 66 H (4-35) U/L Alkaline Phosphatase 115 109 (38-126) U/L Albumin 3.4 L 3.3 L (3.5-5.1) g/dL Urine 08/29/19 Range/Units 19:30 Urine Color Yellow (Yellow) Urine Appearance Cloudy H (Clear) Urine pH 6.0 (5.0-9.0) Ur Specific [place] 1.012 (1.001-1.035) Urine Protein Negative (Negative) mg/dL Urine Glucose (UA) Negative (Negative) mg/dL Assessment and Plan Assessment and plan (1) hypertension: Code(s): O16.5 - Unspecified maternal hypertension, complicating the puerperium Status: Acute Additional Plan Pt is feeling much better today. Headache has resolved. BP improving. LFT's have decreased slightly. Will await consult with Dr Schaefer.
== END 2019-08-30 09:50 | disposition home or self-care (01) ==
LOC: ANHOBOP 18:26 → ANHOBPP 20:59 → ANHOBOP 08-30 11:53 → ANHOBPP 08-30 11:53
PROVIDERS: Advanced Practice Midwife; Admitting Provider Obstetrics & Gynecology; PCP Internal Medicine; Visit Provider Obstetrics & Gynecology
DX: O16.5 Unspecified maternal hypertension, complicating the puerperium (principal)
CPT/HCPCS: 36415; 80053; 81001; 82570; 84156; 84550; 85025; 87077; 87086; 87088; 87186; A9270; G0378; G0379

== ENCOUNTER 2020-09-11 20:07 | Outpatient (CLI) | payer OTHER, SELFPAY ==
[2020-09-11 20:30] VITALS: BP 128/78; PULSE 120
[2020-09-11 20:45] VITALS: BP 117/71; PULSE 123
[2020-09-11 20:52] LABS: Basophils Percent Auto 0.2 % (0.2-1.2); Eosinophils Percent Auto 0.4 % (0-4.4); Hematocrit 35.9 % (37.0-47.0); Hemoglobin 11.5 g/dL (12.0-15.0); Immature Granulocyte Absolute 0.09 K/mm3 (0.00-0.031); Immature Granulocyte Percent A 0.9 % (0-0.5); Lymphocytes Absolute Auto 2.16 K/mm3 (0.9-3.2); Lymphocytes Percent Auto 21.5 % (18.3-44.2); Mean Corpuscular Hemoglobin 26.4 pg (26-34); Mean Corpuscular Volume 82.3 fl (80-100); Mean Platelet Volume 11.1 fl (7.4-10.4); Monocytes Absolute Auto 0.7 K/mm3 (0.1-0.6); Monocytes Percent Auto 7.3 % (2.6-8.5); Neutrophils Percent Auto 69.7 % (45.5-73.1); Platelet Count Result 234 k/mm3 (150-375); Red Blood Count 4.36 M/mm3 (4.2-5.4); Red Cell Distribution Width 14.5 % (11.5-14.5); White Blood Count 10.1 K/mm3 (4.5-10.0)
[2020-09-11 20:58] LABS: Add Urine Microscopic? YES; Amorphous Sediment Urine Few; Appearance Urine Cloudy (Clear); Bacteria Urine Trace /hpf; Bilirubin Urine Negative (Negative); Blood Urine Negative (Negative); Color Urine Yellow (Yellow); Glucose Urine UA Negative (Negative); Ketones Urine Negative (Negative); Leukocyte Esterase Ur 2+ LEU/UL (NEGATIVE); Mucus Urine Moderate /lpf; Nitrate Urine Negative (Negative); Protein Urine 1+ mg/dL (Negative); RBC Urine 0-2 /hpf (0-2); Specific Grav Ur 1.032 (1.001-1.035); Squamous Epithelial Cell Urine Many /hpf (Few); Urobilinogen Urine Negative mg/dL (<2.0)
[2020-09-11 21:00] VITALS: BP 128/78; PULSE 106
[2020-09-11 21:06] LABS: Alanine Aminotransferase 13 U/L (4-35); Albumin Level 3.6 g/dL (3.5-5.1); Alkaline Phosphatase 112 U/L (38-126); Anion Gap 10 mmol/L (8-16); Aspartate Amino Transferase 19 U/L (14-36); Bilirubin,Total 0.2 mg/dL (0.2-1.3); Blood Urea Nitrogen 7 mg/dL (7-17); Calcium 9.5 mg/dL (8.4-10.2); Carbon Dioxide 18 mmol/L (22-30); Chloride 106 mmol/L (98-107); Estimated Glomerular Filt Rate > 60; Glucose 114 mg/dL (65-105); Potassium 3.6 mmol/L (3.4-5.0); Sodium 134 mmol/L (137-145)
[2020-09-11 21:15] VITALS: BP 121/79; PULSE 110
--- NOTE | 2020-09-11 21:15 | PC.NURSE ---
Gibran Da Silva CNM on unit. Lab results and BPs given. June D/C home.
[2020-09-11 21:21] LABS: Creatinine Urine 300.7 mg/dL; Total Protein Urine Random 7 mg/dL; Ur Ttl Prot Creatinine Ratio 0.02 mg/mg (0-0.20)
== END 2020-09-11 21:20 | disposition home or self-care (01) ==
LOC: ANHOBOP 20:13 → ANHOBPP 20:14
PROVIDERS: Advanced Practice Midwife; PCP Internal Medicine; Visit Provider Obstetrics & Gynecology
DX: O13.9 Gestational [pregnancy-induced] hypertension without significant proteinuria, unspecified trimester (principal); Z3A.00 Weeks of gestation of pregnancy not specified
CPT/HCPCS: 36415; 59025; 80053; 81001; 82570; 84156; 84550; 85025; 87086; 87088; 99199

== ENCOUNTER 2020-09-24 06:00 | Inpatient (IN) | payer OTHER, SELFPAY ==
[2020-09-24] VITALS (154 sets, daily range): BP systolic 78–126; BP diastolic 36–79; PULSE 25–271; RESP 18; TEMP 36.1–37.1; O2SAT 91–100
[2020-09-24 06:50] LABS: Basophils Percent Auto 0.2 % (0.2-1.2); Eosinophils Percent Auto 0.4 % (0-4.4); Hematocrit 37.9 % (37.0-47.0); Hemoglobin 12.1 g/dL (12.0-15.0); Immature Granulocyte Absolute 0.11 K/mm3 (0.00-0.031); Immature Granulocyte Percent A 1.1 % (0-0.5); Lymphocytes Percent Auto 19.6 % (18.3-44.2); Mean Corpuscular HGB Conc 31.9 g/dl (32-36); Mean Corpuscular Hemoglobin 26.6 pg (26-34); Mean Corpuscular Volume 83.3 fl (80-100); Mean Platelet Volume 10.9 fl (7.4-10.4); Monocytes Absolute Auto 0.5 K/mm3 (0.1-0.6); Monocytes Percent Auto 5.1 % (2.6-8.5); Neutrophils Absolute Auto 7.5 K/mm3 (1.3-6.7); Neutrophils Percent Auto 73.6 % (45.5-73.1); Platelet Count Result 221 k/mm3 (150-375); Red Blood Count 4.55 M/mm3 (4.2-5.4); Red Cell Distribution Width 15.4 % (11.5-14.5); White Blood Count 10.2 K/mm3 (4.5-10.0)
--- NOTE | 2020-09-24 06:57 | LDADM ---
This patient, Jyoti Amor, was admitted to Labor/Delivery/Recovery 105 on 09/24/20 at 06:00. Plans for labor, pain management and were discussed with patient. Patient/family oriented to hospital policies and general routines including ID bracelet, bed and alarms, visiting hours, pain management, procedures, bathroom and other care routines, personal items, smoking policy, room service/diet and guest tray routines, security routines, call light and visiting hours. Patient/Family are encouraged to report perceived risks to care and to ask questions if they do not understand what they are told or what they should do. See OBIX for further documentation.
[2020-09-24] MEDS: LACTATED RINGERS 1,000 ML 125 ML IV CONT ×3 (07:12→15:22)
[2020-09-24] MEDS: OXYTOCIN 30 UNITS/NS 500 ML 30 UNITS/500 ML BAG IV CONT (07:17)
--- NOTE | 2020-09-24 08:23 | WPDOBADMIT ---
Obstetrics - Admit Note Admission Note: 25y/o here for induction of labor. History of LGA and pp hemorrhage with previous . record reviewed. No pertinent additions to the history and/or any subsequent changes in the physical findings that are not consistent with the expected course of the were found. Additions to the history and/or subsequent changes in the physical findings follow. None.
--- NOTE | 2020-09-24 08:24 | PM.OBPNLAB ---
Pain Control Date/time seen: 09/24/20 08:24 VSS and afebrile FHR category 1 Occasional contractions /-2 AROM moderate amount of clear odorless fluid
--- NOTE | 2020-09-24 09:18 | P.PNAN_ITS ---
Anes - Eval Pre Procedure Procedure: labor epidural Date/Time: 09/24/20 09:18 Pre Op Diagnosis: IOL Patient Data Age: 25 Gender: F Height: Weight: Last Vital Signs Temp 36.1 C L 09/24/20 08:10 Pulse 97 09/24/20 09:01 BP 109/79 09/24/20 09:01 Allergies Allergy/AdvReac Type Severity Reaction Status Date / Time Penicillins Allergy Hives Verified 08/25/19 13:47 Home Medications Medication Instructions Recorded Confirmed Type PNV cmb#95-ferrous fumarate-FA 1 tablet PO DAILY 07/23/19 09/23/20 History [] Laboratory Tests 09/24/20 09/24/20 06:41 06:41 WBC 10.2 K/mm3 H K/mm3 (4.5-10.0) RBC 4.55 M/mm3 M/mm3 (4.2-5.4) Hgb 12.1 g/dL g/dL (12.0-15.0) Hct 37.9 % % (37.0-47.0) MCV 83.3 fl fl (80-100) MCH 26.6 pg pg (26-34) MCHC 31.9 g/dl L g/dl (32-36) RDW 15.4 % H % (11.5-14.5) Plt Count 221 k/mm3 k/mm3 (150-375) MPV 10.9 fl H fl (7.4-10.4) Immature Gran % (Auto) 1.1 % H % (0-0.5) Neut % (Auto) 73.6 % H % (45.5-73.1) Lymph % (Auto) 19.6 % % (18.3-44.2) [place] % (Auto) 5.1 % % (2.6-8.5) Eos % (Auto) 0.4 % % (0-4.4) Baso % (Auto) 0.2 % % (0.2-1.2) Lymph # (Auto) 2.00 K/mm3 K/mm3 (0.9-3.2) [place] # (Auto) 0.5 K/mm3 K/mm3 (0.1-0.6) Eos # (Auto) 0.0 K/mm3 K/mm3 (0-0.3) Baso # (Auto) 0.0 K/mm3 K/mm3 (0.0-0.1) Abs Immat Gran (auto) 0.11 K/mm3 H K/mm3 (0.00-0.031) Absolute Neuts (auto) 7.5 K/mm3 H K/mm3 (1.3-6.7) Absolute Nucleated RBC 0.0 K/mm3 K/mm3 (0.0-0.012) Nucleated RBC % 0.0 % % (0.0-0.2) RPR Pending Patient hx anesthesia problems: none Family hx anesthesia problems: none PMFSH Past Medical History Medical History IUP (intrauterine ), incidental Morbid obesity with BMI of 40.0-44.9, adult Family History Family History Father Throat cancer Hypertension Grandparent Diabetes mellitus Social History Social History Smoking status: Never smoker Substance use: never Gender identity (if verbalized by the patient): Female Spiritual care concerns: No Exam Day of Procedure 09/24/20 09:18 Patient weight: morbidly obese Heart: regular rate and rhythm Lungs: normal air movement Airway: Mallampati scale class III Neurological: alert and oriented
[2020-09-24 10:05] LABS: Rapid Plasma Reagin Non-Reactive (NonReactive)
[2020-09-24] MEDS: PHENYLEPHRINE 1,000 MCG/10 ML SYRINGE 100 MCG IV PUSH ×2 (15:27→16:10)
--- NOTE | 2020-09-24 18:52 | PM.OBPRVD ---
OB - Delivery Note Procedure Delivery date: 09/24/20 events: Polyhydramnios Intrapartal events: None Induction method: per pitocin protocol Delivery monitor: external FHT, external uterine and internal FHT Route of delivery: Episiotomy description: None Laceration Description: None Quantitative Blood Loss (ml): 164 Anesthesia type: Epidural Narrative: Mother and baby in stable condition. Cord gasses collected and handed off to staff. Baby Date of : 09/24/20 Weeks of gestation at delivery: 39 gender: Male Weight (pounds): 8 Weight (ounces): 4 presentation: vertex position: Right Occiput Anterior Placenta delivery description: Spontaneous cord vessel description: Delayed Cord Clamping score one minute: 9 score five minutes: 9
[2020-09-24] MEDS: OXYTOCIN 30 UNITS/NS 500 ML 30 UNITS/500 ML BAG 125 UNITS IV CONT (19:16)
[2020-09-24] MEDS: LORATADINE 10 MG TABLET PO (20:47)
[2020-09-24] MEDS: ACETAMINOPHEN 325 MG TABLET 650 MG PO (23:28)
[2020-09-25 03:30] VITALS: BP 110/67; PULSE 88; RESP 18; TEMP 36.5; O2SAT 97
[2020-09-25 06:00] LABS: Hematocrit 36.4 % (37.0-47.0); Hemoglobin 11.5 g/dL (12.0-15.0)
--- NOTE | 2020-09-25 07:35 | PM.OBPNVD ---
OB - PN: Subj Subjective Date/time seen: 09/25/20 07:35 Patient comments: no complaints baby status: doing well [place] feeding status: exclusively breast feeding OB - PN: Obj Data Labs CBC & Chem 7: 09/25/20 04:07 Labs: Laboratory Results - last 24 hr 09/24/20 09/24/20 09/25/20 06:41 06:41 04:07 Hgb 11.5 L Hct 36.4 L RPR Non-reactive Blood Type O Positive Antibody Screen Negative OB - PN A/P Plan day: 1 Plan: routine care Time Spent With Patient Time: Total time spent is greater than 50% in coordination of care (as documented) at patient's floor/unit and/or counseling patient: Review of Systems Review of Systems: All systems reviewed & are unremarkable except as noted in HPI and below Exam Const: General: cooperative Psych: Affect: normal affect Attitude: cooperative Thought process: Normal thought process present Thought content: Yes Normal thought content present Insight: Good insight present (Psych) Judgement: Good judgement present (Psych)
[2020-09-25 07:45] VITALS: BP 124/73; PULSE 82; RESP 18; TEMP 37.1; O2SAT 100
--- NOTE | 2020-09-25 08:02 | WPDANLDPN2 ---
Anes-Prog Note L&D Date/Time: 09/25/20 08:02 Comfortable throughout: labor and delivery Neuraxial method: epidural Neuro status: Neuro function grossly intact. Cardiovascular status: normal Respiratory status: normal Airway patency: baseline Mental status: baseline Post-Op hydration status: normal Vital Signs: Last Vital Signs Temp 36.5 C 09/25/20 03:30 Pulse 88 09/25/20 03:30 Resp 18 09/25/20 03:30 BP 110/67 09/25/20 03:30 Pulse Ox 97 09/25/20 03:30 Pain score (VAS): 0 I/O: Intake & Output 09/24/20 09/25/20 09/25/20 23:59 07:59 15:59 Intake Total 1100 Output Total 347 Balance 753 Post-procedural complaints: none Patient feedback: Patient satisfied with anesthetic care.
[2020-09-25] MEDS: DOCUSATE SODIUM 100 MG CAPSULE PO (08:05)
[2020-09-25] MEDS: LORATADINE 10 MG TABLET PO (08:05)
[2020-09-25] MEDS: LANOLIN (LANSINOH) 7.5 GM CREAM 1 APPLIC TOPICAL (08:05)
[2020-09-25] MEDS: TETANUS,DIPHTHERIA,AC PERTUSSIS ADULT (0.5 ML) BOOSTRIX IM (08:05)
[2020-09-25] MEDS: MULTIVIT/MIN/PREN/FOL AC/IRON TABLET 1 TAB PO (08:05)
[2020-09-25] MEDS: IBUPROFEN 600 MG TABLET PO ×2 (08:10→16:20)
[2020-09-25 12:05] VITALS: BP 114/76; PULSE 98; RESP 16; TEMP 36.9; O2SAT 100
[2020-09-25 15:20] VITALS: BP 115/70; PULSE 88; RESP 18; TEMP 36.8
[2020-09-25 19:35] VITALS: BP 116/64; PULSE 95; RESP 16; TEMP 36.4; O2SAT 100
[2020-09-26 07:35] VITALS: BP 112/74; PULSE 88; RESP 16; TEMP 36.4; O2SAT 99
--- NOTE | 2020-09-26 08:01 | PM.OBPNVD ---
OB - PN: Subj Subjective Date/time seen: 09/26/20 08:01 Patient comments: no complaints baby status: doing well OB - PN: Obj Data Labs CBC & Chem 7: 09/25/20 04:07 OB - PN A/P Plan day: 2 Plan: routine care and discharge home (F/U in 4 weeks) Time Spent With Patient Time: Total time spent is greater than 50% in coordination of care (as documented) at patient's floor/unit and/or counseling patient: Time with patient: less than 15 minutes Review of Systems Review of Systems: All systems reviewed & are unremarkable except as noted in HPI and below Exam Narrative: Fundus firm and vaginal flow controlled. No lower ext redness, warmth, or edema. Negative homans. Const: General: comfortable Chest: Breast/axilla inspection: normal inspection of the breasts Resp: Effort & Inspection: normal respiratory effort Cardio: Rate: regular rate GI: GI Palp: Yes Soft to palpation Psych: Appearance: grossly normal Affect: normal affect Attitude: cooperative Thought content: Yes Normal thought content present Judgement: Good judgement present (Psych)
[2020-09-26] MEDS: MULTIVIT/MIN/PREN/FOL AC/IRON TABLET 1 TAB PO (08:38)
--- NOTE | 2020-09-26 09:00 | PC.NURSE ---
Mother called out for assist with feeding. Upon entering mother is tearful and reporting pain with feeding. is latched with shallow latch. Requested mother release latch. Reviewed positioning/alignment in cross cradle, holding breast in ?U? hold and guided asymmetrical latch on. Discussed rational for each. able to latch correctly. Infant nursed eagerly, with steady draws and frequent swallowing noted. Suggested mother stimulate while feeding to increase stimulate, increase intake and to assist with maintaining deep latch. Mother reports she can feel change in latch and has no tenderness. Reviewed signs of a correct latch, effective nursing and suck swallow ratio. would slip to shallow latch, mother reports tenderness. Demonstrated how to adjust latch more deeply while feeding. Nipple care reviewed of lanolin after feedings, warm compresses as needed. Mother states she wishes discharge to day. Mother is able to independently latch with appropriate positioning/alignment, she continues to work with deep latch. She denies any nipple discomfort, is feeding as required and waking infant to feed if needed. has had at least 8 effective feedings in the past 24 hours, and is currently meeting outcomes for weight, output, jaundice and feeding frequencies. Mother states she feels confident to continue effective at home. Reviewed transition to breast milk, signs of adequate intake, and engorgement/relief. Instructed to call ICP if intake/output less than required. Reviewed regular medications mother is taking. Information provided per Fanny. Reviewed community resources on the [facility] website and in the Mom/Baby guide. Information on outpatient services provided. Mother has no further questions at this time.
--- NOTE | 2020-09-26 18:30 | PC.NURSE ---
Patient discharged to a no care bed. Supplies given.
[2020-09-30 10:24] VITALS: BP 124/83; PULSE 83; RESP 18; TEMP 36.8; O2SAT 100
--- NOTE | 2020-10-17 08:26 | PM.OBDSVD ---
DS: Admitting Diagnosis Admitting Diagnosis Labor OB - DS: Summary OB Procedures : None OB Procedures Intrapartum: Spontaneous Vag Delivery OB Procedures: : None Time Spent with Patient Time attestation: Total time spent providing and/or coordinating discharge services: DS: Data Data Completed and Pending Completed studies during hospitalization: Pending at discharge 09/24/20 20:39 Surgical [PTH] Routine Discharge Plan Discharge Attending physician on discharge: Kayleen Pierce Consulting providers: Kayleen Pierce ; Piper Da Silva Discharging Clinician: Kayleen Pierce Patient Disposition: Home, Self-Care Activity: pelvic rest Diet: as tolerated Discharge Instructions: Education: Mom and Baby Guide and Preeclampsia Handout Given to: Mother Follow-Up: Call your delivering provider's office for an appointment to be seen in: 4 Weeks Mom and baby should come to the [facility] for the follow-up appointment. Appointment Date/Time: see baby discharge instructions What to expect at your follow-up visit:physical assessment Call [phone] if you are unable to keep your appointment time. BREAST CARE: * Wear a snug supportive bra. * For engorgement discomfort: Breast Feeding: * Apply warm moist washcloths * Express milk as needed to relieve engorgement * Wear loose clothing * For sore nipples: * Identify correct latch-on * Apply warm moist washcloths before and after nursing * Air dry nipples after nursing * May apply Lansinoh cream to nipples EPISIOTOMY/PERINEAL CARE: * Until bleeding stops, use your sofiya bottle after urinating * Change your pad frequently throughout the day * You may take sitz baths several times a day (fill your bathtub with warm water and soak for 20 minutes.) Do NOT bathe in the water * No tub baths until seen by your physician - You may shower ACTIVITY: * Rest as much as possible. * Do not exercise or lift anything heavier than your baby (such as laundry or other children.) * Avoid stairs or driving as much as possible. * Do not put anything into the vagina. No douching, tampons, or sexual activity until seen by physician. NOTIFY PHYSICIAN IF YOU HAVE ANY QUESTIONS OR IF ANY OF THE FOLLOWING SYMPTOMS OCCUR: * If your perineum becomes red, swollen, or more painful than what you have experienced in the hospital. * If your vaginal bleeding becomes foul smelling. * If your vaginal bleeding becomes more heavy than a period or if your bleeding changes from pink to bright red. However, you may pass an occasional walnut-sized clot once or twice for the first week . * If you experience a sharp, shooting pain in you calves. * If you discover a hard, reddened area on your breast or if you experience flu-like symptoms. DIET: * Eat regular, well-balanced meals. * Drink plenty of fluids daily. If , drink to thirst. Stand Alone Forms: General Discharge Information Follow-up/Referrals: Kayleen Pierce CNM [Certified Nurse Sign Language Translator] - Discharge Medications: Continued PNV cmb#95-ferrous fumarate-FA [] 28 mg iron- 800 mcg Tablet 1 tablet PO DAILY RF: 0 Date of admission: 09/24/20 06:00 Primary Care Provider: Stanley Patrick Admitting Provider: Rory Schaefer Attending physician on admission: Rory Schaefer Condition: Stable
== END 2020-09-26 18:30 | disposition home or self-care (01) | DRG 560 ==
LOC: ANHLDR 06:05 → ANHOB2 22:15
PROVIDERS: Advanced Practice Midwife; Admitting Provider Obstetrics & Gynecology; PCP Internal Medicine; Visit Provider Obstetrics & Gynecology
DX: O40.3XX0 Polyhydramnios, third trimester, not applicable or unspecified (principal); Z37.0 Single live birth; Z3A.39 39 weeks gestation of pregnancy; O99.892 Other specified diseases and conditions complicating childbirth; Z87.59 Personal history of other complications of pregnancy, childbirth and the puerperium; O99.214 Obesity complicating childbirth; E66.01 Morbid (severe) obesity due to excess calories
CPT/HCPCS: 36415; 85014; 85018; 85025; 86592; 86850; 86900; 86901; 88307; 90715; A9270; J2370; J2590; J2795; J7120

== ENCOUNTER 2024-05-15 05:02 | Inpatient (IN) | payer BC, SELFPAY ==
[2024-05-15] VITALS (110 sets, daily range): BP systolic 112–147; BP diastolic 64–88; PULSE 78–131; RESP 16; TEMP 36.7–37.4; O2SAT 94–100; BMI 45.6
--- OUTSIDE RECORDS SUMMARY | 2024-05-15 05:14 | XMS_ITS | Clinical Summary ---
Author Organization [facility] Address [facility] [place] [address] Care Team Providers Care Retail Greeter Name Role Phone Stanley Patrick MD Primary Care Provider [phone] Allergies Active Allergy Reactions Criticality Noted Date Comments Penicillins Unknown 09/29/2018 Medications vitamin, low iron, ( VITAMIN WITH IRON) 27-0.8 MG tablet Take 1 tablet by mouth daily. Active Active Problems Estimated Date of Delivery Comme nts Yes 05/14/2019 No known active problems Family History Medical History Relation Comments Hypertension Father Diabetes Maternal Grandmother Relation Status Comments Father Maternal Grandmother Social History Tobacco Use Types Packs/Day Years Used Date Smoking Tobacco: Never Smokeless Tobacco: Never Alcohol Use Standard Drinks/Week Comments No 0 (1 standard drink = 0.6 oz pur e alcohol) AUDIT-C Answer Date Recorded Frequency of Alcohol Consumption Never 09/29/2018 Average Number of Drinks Not on file 019 Frequency of Binge Drinking Not on file 03/2018 Estimated Date of Delivery Comme nts Yes 05/14/2019 Sex and Gender Information Value Date Recorded Sex Assigned at Not on file Legal Sex Female 8:30 PM CDT Gender Identity Not on file Sexual Orientation Not on file Last Filed Vital Signs Vital Sign Reading Time Taken Comments Blood Pressure 114/69 10/15/2018 9:05 AM CDT Pulse 79 10/15/2018 9:05 AM CDT Temperature 37.2 C (99 F) 10/15/2018 8:05 AM CDT Respiratory Rate 16 10/15/2018 9:05 AM CDT Oxygen Saturation 99% 10/15/2018 8:05 AM CDT Inhaled Oxygen Concentration - - Weight 103.4 kg (228 lb) 10/15/2018 8:05 AM CDT Height 167.6 cm (5' 6 ) 10/15/2018 8:05 AM CDT Body Mass Index 36.8 10/15/2018 8:05 AM CDT Plan of Treatment Health Maintenance Due Date Last Done Comments Cervical Cancer Screening Pa p Smear (Age 21 to 29) Every 3 Years 1997 Cervical Cancer Screening 1997 Annual Physical 2000 Hepatitis C 2015 DTaP, Tdap and Td Vaccines ( 1 - Tdap) 2016 Hepatitis B Vaccines (1 of 3 - 19+ 3-dose series) 2016 COVID-19 Vaccine ( - 2023-2 5 season) 2023 Influenza Adult (#1) 2023 RSV Immunization or 60+ Years (1 - 1-dose 75+ series) 2072 HPV Vaccines Aged Out No longer eligi ble based on patient's age to complete this topic Meningococcal B Vaccine Aged Out No l onger eligible based on patient's age to complete this topic Meningococcal Vaccine Aged Out No harika nori eligible based on patient's age to complete this topic Pneumococcal Vaccine: Pediat rics (0 to 5 Years) and At-Risk Patients (6 to 64 Years) Aged Out No longer eligible b ased on patient's age to complete this topic RSV Immunizations Under 20 Months Aged Out No longer eligible based on patient's age to complete this topic Insurance [employer]ICA[employer] Care Teams Retail Greeter Relationship Specialty Start Date End Date Stanley Patrick MD [address] [place] [address] PCP - General INTERNAL MEDICINE 09/06/18
--- OUTSIDE RECORDS SUMMARY | 2024-05-15 05:15 | XMS_ITS | Patient Health Summary ---
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 HEMATOLOGY ORD ERABLES [facility] [address] [place] [address] * (ABNORMAL) COMPREHENSIVE METABOLIC PANEL (02/04/2013 12:30 PM [facility]) Glucose 178(H) 70 - 105 mg/dL 02/04/2013 1:04 PM [facility] Sodium 139 136 - 145 mmol/L 02/04/2013 1:04 PM [facility] Potassium 3.5 3.5 - 5.1 mmol/L 02/04/2013 1:04 PM [facility] Chloride 107 98 - 107 mmol/L 02/04/2013 1:04 PM [facility] CO2 22 20 - 28 mmol/L 02/04/2013 1:04 PM [facility] Calcium 9.37 9.08 - 10.48 mg/dL 02/04/2013 1:04 PM [facility] Anion Gap 10 5 - 20 mmol/L 02/04/2013 1:04 PM [facility] BUN 13.2 5.3 - 18.7 mg/dL 02/04/2013 1:04 PM [facility] Creatinine 0.87 0.61 - 1.07 mg/dL 02/04/2013 1:04 PM [facility] eGFR by MDRD mL/min/1.7 3m2 02/04/2013 1:04 PM [facility] Comment:eGFR calculations ar e not performed for children under 18 years old. eGFR by MDRD mL/min/1.7 3m2 02/04/2013 1:04 PM [facility] Comment:eGFR calculations ar e not performed for children under 18 years old. Alkaline Phosphatase 52(L) 100 - 390 U/L 02/04/2013 1:04 PM [facility] ALT 103(H) 8 - 65 U/L 02/04/2013 1:04 PM [facility] AST 148(H) 3 - 35 U/L 02/04/2013 1:04 PM [facility] Protein Total 6.7 6.3 - 8.2 gm/dL 02/04/2013 1:04 PM [facility] Albumin 3.8 3.3 - 4.9 gm/dL 02/04/2013 1:04 PM [facility] Bilirubin Total 0.4 0.3 - 1.2 mg/dL 02/04/2013 1:04 PM [facility] Blood BLOOD SPECIMEN / Unknown 02/04/2013 12:30 PM TANK SETTER 02/04/2013 12:47 PM TANK SETTER Dima Hardy MD LAB - CHEMISTRY ORDE [place]STER Performing Organization Address City/[facility] Co de Phone Number [facility] [address] [place] [phone] * LIPASE BLOOD (02/04/2013 12:30 PM TANK SETTER) Lipase 37 10 - 220 U/L 02/04/2013 1:03 PM [facility] Blood BLOOD SPECIMEN / Unknown 02/04/2013 12:30 PM TANK SETTER 02/04/2013 12:47 PM [employer] SETTER Dima Hardy MD LAB - CHEMISTRY ORDE [employer] Performing Organization Address [facility] Co de Phone Number [facility] [address] [place] [phone] * (ABNORMAL) AMYLASE BLOOD (02/04/2013 12:30 PM TANK SETTER) Amylase 100(H) 5 - 65 U/L 02/04/2013 1:03 PM [facility] Blood BLOOD SPECIMEN / Unknown 02/04/2013 12:30 PM TANK SETTER 02/04/2013 12:47 PM T[employer] SETTER Dima Hardy MD LAB - CHEMISTRY CONNIE MARKUSMATIAS Performing Organization Address [facility] Co de Phone Number [facility] [address] [place] [address] * ALCOHOL ETHYL BLOOD (02/04/2013 12:30 PM TANK SETTER) Ethanol <10 <10 mg/dL 02/04/2013 12:59 PM [facility] Ethanol Calculated 0.030 - 0.250 gm/dL 02/04/2013 12:59 PM [facility] Comment:Not Calculated Blood BLOOD SPECIMEN / Unknown 02/04/2013 12:30 PM TANK SETTER 02/04/2013 12:47 PM TANK SETTER Narrative [facility] - 02/04/2013 12:59 PM TANK SETTER Alcohol Range: Negative: <10 mg/dL or <0.01 gm/dL Toxic: 50-100 mg/dL or 0.05-0.100 gm/dL Depression of YOKER: >100 mg/dL or >0.100 gm/dL Panic: >250 mg/dL or >0.250 gm/dL Potentially Fatal: >400 mg/dL or >0.400 gm/dL Legal intoxication in [place] and [place] is 0.08 gm/dL. Dima Hardy MD LAB - CHEMISTRY CONNIE BRIGGS Performing Organization Address [facility] de Phone Number [facility] [address] [place] [address] * (ABNORMAL) DIFFERENTIAL MANUAL (02/04/2013 12:30 PM TANK SETTER) WBC Auto 21.9 x10^9/L 02/04/2013 1:05 PM [facility] Neutrophil % Manual 83(H) 24 - 66 % 02/04/2013 1:05 PM [facility] Lymphocytes % Manual 11(L) 22 - 61 % 02/04/2013 1:05 PM [facility] Monocytes % Manual 3 3 - 15 % 02/04/2013 1:05 PM [facility] Band % Manual 3 % 02/04/2013 1:05 PM [facility] Cells Counted 100 # cells 02/04/2013 1:05 PM TANK SETTER [facility] RBC Morphology Normal 02/04/2013 1:05 PM [facility] WBC Morph Normal 02/04/2013 1:05 PM [facility] Blood BLOOD SPECIMEN / Unknown 02/04/2013 12:30 PM TANK SETTER 02/04/2013 12:38 PM TANK SETTER Dima Hardy MD LAB - HEMATOLOGY ORD ERABLES Performing Organization Address City/State/[facility] Co de Phone Number [facility] [address] [place] [address] Care Teams Panel Cutter Relationship Specialty Start Date End Date Stanley Patrick MD PCP - General Internal Medicine 02/04/13
--- OUTSIDE RECORDS SUMMARY | 2024-05-15 05:15 | XMS_ITS | Clinical Summary ---
Author Organization [facility] [employer] Address [address] [place] [address] Care Team Providers Care Perch Mender Name Role Phone Stanley Patrick MD Primary Care Provider [phone] [facility] [employer],non-owned Affiliates and Associated Physician Practices is amultiple site organization consisting of ambulatory clinics and hospital sitesin [place], [place], [place] and [place]. This disclosure is being madepursuant to the Care Everywhere program and may not contain all information available regarding this patient. Last updated 17.[facility] [employer] Allergies Active Allergy Reactions Criticality Noted Date Comments Penicillins Anaphylaxis High 02/04/2013 Medications Be aware that medications may not [...] Comments Blood Pressure 107/65 02/07/2013 8:15 AM [employer] Pulse 100 02/07/2013 11:55 AM [employer] Temperature 36.1 C (97 F) 02/07/2013 11:55 AM [employer] Respiratory Rate 18 02/07/2013 11:55 AM [employer] Oxygen Saturation 98% 02/07/2013 11:55 AM [employer] Inhaled Oxygen Concentration 100% 02/06/2013 4 :50 AM [employer] Weight 68 kg (150 lb) 02/04/2013 3:54 PM [employer] Height - - Body Mass Index - - Plan of Treatment Health Maintenance Due Date Last Done Comments PAP SMEAR 1997 HIV SCREENING 2012 HEPATITIS C SCREENING 04/06/2015 DTAP/TDAP/TD VACCINES (1 - Tdap) 2016 HEPATITIS B VACCINE (1 of 3 - 19+ 3-dose series) 2016 COVID-19 VACCINE ( - 2023-2 5 season) 2023 INFLUENZA VACCINE (#1) 2023 DEPRESSION SCREENING 03/01/2024 ZOSTER VACCINE (1 of 2) 2047 HIB VACCINE Aged Out No longer eligi ble based on patient's age to complete this topic HPV VACCINE Aged Out No longer eligi ble based on patient's age to complete this topic MENINGOCOCCAL (Group B) VACC INE SHARED DECISION-MAKING Aged Out No longer eligibl e based on patient's age to complete this topic MENINGOCOCCAL GROUPS A/C/Y/W VACCINE Aged Out No longer eligible b ased on patient's age to complete this topic PNEUMOCOCCAL VACCINE Aged Out No long er eligible based on patient's age to complete this topic Medical Devices Implanted Type Area Plate Printer Device Identifier Shelf Expiration Date Model / Serial / Lot Trigen Trochanteric Antegrade Nail Implanted:Qty: 1 on 02/04/2013 by Katie Ardon MD at [facility] Nail Right: Femur 11/29/2020 [id number] / / [id number] Description:11.5 MM X 38 CM , 130 DEGREE Trigen L-P Screw Implanted:Qty: 1 on 02/04/2013 by Katie Ardon MD at [facility] Screw Right: Femur 03/01/2022 [id number] / / [id number] Description:5.0 MM X 67.5 MM Trigen L-P Screw 5.0 Mm X 45 Mm Implanted:Qty: 1 on 02/04/2013 by Katie Ardon MD at [facility] Screw Right: Femur 05/30/2022 [id number] / / [id number] Explanted Type Area Plate Printer Device Identifier Shelf Expiration Date Model / Serial / Lot Pin Guide Ton [place]alt 3.2mm X 343mm Explanted:Qty: 1 on 02/04/2013 by Katie Ardon MD at [facility] Right: Femur 09/29/2022 [id number] / / [id number] Care Teams Perch Mender Relationship Specialty Start Date End Date Stanley Patrick MD [phone] (work) PCP - General Internal Medicine 02/04/13
--- OUTSIDE RECORDS SUMMARY | 2024-05-15 05:15 | XMS_ITS | Data Portability ---
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 Discussed plan. Not available 05/10/2024 18:01:38 Plan of Treatment Reminders Order Date Submit Date Provider Last Modified By Organization Details Last Modified Time Details Appointments None recorded. Lab None recorded. Referral None recorded. Procedures None recorded. Surgeries None recorded. Imaging US, obstetric, biophysical profile + non-stress test 2024 [email or web address], [address], [place], [address], 18:21:50 non-stress test 2024 025 martin adan [place], [facility] [address], [place], [address], 23:59:10 US, obstetric, follow-up 2024 025 [email or web address] [place], [facility] [address], [place], [address], 21:08:01 US, obstetric, biophysical profile + non-stress test 2024 025 [email or web address] [place], [address], [place], [address], 21:08:01 non-stress test 2024 025 [email or web address] [place], [address], [place], [address], 00:05:43 Medication Orders None recorded. Patient TargetsNo targets recorded. Patient InstructionsNo instructions recorded. Reason for Referral None Reported. Results Created Date Observation Date Name Description Value Unit Range Abnormal Flag Note LastModifiedBy Organization Detail LastModifiedTime 04/19/1904/19/2024 CULTU RE: GROUP B STREP SCREE N, REFLE X SUSCE PTIBI LITY result report SEE RESULT S BELOW Test: Cultu re: Group B Strep , Refle x Susce ptibi lity ([facility]/ [facility]/K H/[facility] ) Speci men Sourc e: Vagin a/Rec vahid Speci men Type: Vagin al/Re ctal Speci men Date: 2024 1733 Resul t Date: 2024 1553 Resul t Statu s: Final resul t Abnor mal: No Resul ting Lab: [facility] [address] [facility] [address] Tel: CULTU RE ----- ----- ----- --- No Group B strep isola kar at 2 days (ga ctive broth enhan cemen t) Not Available [facility] (Lab) [address] [facility], [place], [address], 04/24/2024 00:00:00 04/26/1904/26/2024 CULTU RE: URINE result report SEE RESULT S BELOW Test: Cultu re: Urine Speci men Sourc e: Urine - Clean Catch Speci men Type: Urine Speci men Date: 2024 1746 Resul t Date: 2024 0738 Resul t Statu s: Final resul t Abnor mal: No Resul ting Lab: [facility] [address] [facility] [address] Tel: CULTU RE ----- ----- ----- --- Cultu re resul t (>=3 organ isms prese nt) indic ates possi ble conta minat ion. Repea t cultu re if sympt oms indic ate. Not Available [facility] (Lab) [address] [address], [place], [address], 04/28/2024 08:43:28 04/05/19 25 04/05/2024 US, obste tric, follo w-up No observ ation record ed. [email or web address] [place] [address], [place], [address], 04/05/2024 18:21:15 04/05/19 25 04/05/2024 US, markie cho, bioph ysica l profi le + non-s tress test No observ ation record ed. [email or web address] [place] [address], [place], [address], 04/05/2024 18:21:24 04/05/19 25 04/05/2024 US, obste tric, follo w-up No observ ation record ed. [email or web address] [address] [facility], [place], [address], 04/05/2024 20:49:15 04/05/19 25 04/05/2024 non-s tress test No observ ation record ed. [email or web address] [place] [address], [place], [address], 04/05/2024 18:35:34 04/05/19 25 04/05/2024 non-s tress test No observ ation record ed. [email or web address] [place] [address], [place], [address], 04/05/2024 18:38:42 04/05/19 25 03/29/2024 non-s tress test No observ ation record ed. [email or web address] [place] [address], [place], [address], 04/05/2024 18:42:48 04/19/19 25 04/20/2024 US, obste tric, bioph ysica l profi le + non-s tress test No observ ation record ed. [email or web address] [place] [address], [place], [address], 04/20/2024 10:00:15 04/19/19 25 04/19/2024 US, obste tric, bioph ysica l profi le + non-s tress test No observ ation record ed. [email or web address] [address], [place], [address], 04/19/2024 20:41:43 04/19/19 25 04/19/2024 non-s tress test No observ ation record ed. [email or web address] [place] [address], [place], [address], 04/19/2024 21:23:19 04/19/19 25 04/19/2024 non-s tress test No observ ation record ed. [email or web address] [place] [address], [place], [address], 04/19/2024 21:25:19 04/26/19 25 04/26/2024 US, obste tric, bioph ysica l profi le + non-s tress test No observ ation record ed. [email or web address] [place] [address], [place], [address], 04/26/2024 18:06:44 04/27/19 25 04/26/2024 US, obste tric, follo w-up No observ ation record ed. [email or web address] [address], [place], [address], 04/30/2024 21:55:01 04/28/19 25 04/26/2024 non-s tress test No observ ation record ed. [email or web address] [place] [address], [place], [address], 04/28/2024 09:18:35 04/28/19 25 04/26/2024 non-s tress test No observ ation record ed. Not Available 04/28 18:35:05 05/04/19 25 05/03/2024 US, obste tric, follo w-up No observ ation record ed. [email or web address] [address], [place], [address], 05/09/2024 11:48:08 05/04/19 25 05/03/2024 US, obste tric, follo w-up No observ ation record ed. [email or web address] [place] [address], [place], [address], 05/03/2024 18:47:28 05/04/19 25 05/03/2024 US, markie cho, bioph ysica l profi le + non-s tress test No observ ation record ed. [email or web address] [place] [address], [place], [address], 05/03/2024 18:47:42 05/05/19 25 05/04/2024 non-s tress test No observ ation record ed. [email or web address] [place] [address], [place], [address], 05/04/2024 09:48:17 05/11/19 25 05/10/2024 non-s tress test No observ ation record ed. [email or web address], [place], [address], 05/10/2024 17:28:38 05/11/1905/10/2024 US, obste tric, bioph ysica l profi le + non-s tress test No observ ation record ed. [email or web address] [address], [place], [address], 05/10/2024 17:59:19 05/11/19 25 05/10/2024 US, obste tric, bioph ysica l profi le + non-s tress test No observ ation record ed. [email or web address] [address], [place], [address], 05/10/2024 18:35:25 Result Notes None recorded. Problems Name Problem SNOMED Code Status Onset Date Resolution Date Notes Provider Name and Address Organization Details Recorded Time Pregnanc y 99955518 Completed 201902/13/2020 Samira magaña [facility], [facility] 1 11:16:35 Pruritic disorder 417908802 Completed 201905/02/2020 Sravani Del Castillo [facility], [facility] 1 12:03:29 Pruritic disorder 092585024 Completed 2019 Emilee hanley null, [facility] 0 11:57:18 Threaten ed miscarri age 06955373 Completed 201802/05/2021 Mariana Johnson [facility], [facility] 1 09:59:18 Gestatio n period, 9 weeks 357978 Completed 201805/02/2020 9 weeks gestatio n of pregnanc y;Record ed Elsewher e: No Locat ion: Merrill hernandez [facility] S ource: EHR Neuroradiologist marilee: N Practi ce ID: [id number] Angel lable Time: 03:45:00 PM Sravani Blancole null, [facility] 12:03:12 Antenata l screenin g Completed 201805/09/2020 Encounte r for antenata l screenin g for uncertai n dates;Re corded Elsewher e: No [facility] Neuroradiologist marilee: N Faraz ce ID: [email or web address] Angel lable Time: 05:15:00 PM Orquidea Hatch null, [facility] 14:36:29 Pregnanc y, childbir th and puerperi um finding Completed 201905/02/2020 Encntr for suprvsn of normal first preg, second trimeste r;Record ed Elsewher e: No Locat ion: [facility] S ource: EHR Neuroradiologist marilee: N Faraz ce ID: [email or web address] Angel lable Time: 04:45:00 PM Sravani Blancole null, [facility] 12:03:25 Complica tion of pregnanc y, childbir th and/or puerperi um 556320145 Completed 201905/02/2020 Oth diseases and conditio ns compl preg/chl dbrth;Re corded Elsewher e: No [facility] Neuroradiologist marilee: N Faraz ce ID: [email or web address] Angel lable Time: 04:15:00 PM Sravani Blancole null, [facility] 1 12:03:35 Normal pregnanc y in multigra raya [id number] 64941 Completed 201805/02/2020 Encounte r for supervis ion of other normal pregnanc y, 2nd trimeste r;Record ed Elsewher e: No [facility]: [facility] Neuroradiologist marilee: N Faraz ce ID: [email or web address] Angel lable Time: 05:15:00 PM Sravani kelsey, [facility] 12:03:20 Antenata l screenin g for malforma tion Completed 201905/02/2020 Encounte r for antenata l screenin g for malforma tions;Re corded Elsewher e: No Locat ion: [facility] S ource: EHR Neuroradiologist marilee: N Practi ce ID: [id number] Angel lable Time: 02:00:00 PM Sravani Del Castillo [facility], [facility] 12:03:16 Gestatio n period, 15 weeks 6934503 Completed 201905/02/2020 15 weeks gestatio n of pregnanc y;Record ed Elsewher e: No Locat ion: [facility] S ource: EHR Neuroradiologist marilee: N Practi ce ID: [id number] Angel lable Time: 04:15:00 PM Sravani Del Castillo [facility] 12:03:11 Finding of contents of cervix 428053582 Completed 201805/02/2020 Weeks of gestatio n of pregnanc y not specifie d;Record ed Elsewher e: No Locat ion: [facility] S ource: EHR Neuroradiologist marilee: N Practi ce ID: [id number] Angel lable Time: 09:45:00 AM Sravani Del Castillo [facility], [facility] 12:03:08 Pregnanc y detectio n examinat ion Completed 201805/02/2020 Encounte r for pregnanc y test, result positive ;Recorde d Elsewher e: No Locat ion: [facility] S ource: EHR Neuroradiologist marilee: N Practi ce ID: [id number] Angel lable Time: 03:45:00 PM Sravani Del Castillo [facility], [facility] 12:03:22 Finding of viabilit y of pregnanc y 641937233 Completed 201805/02/2020 Pregnanc y w inconclu sive viabilit y, unsp;Rec orded Elsewher e: No Locat ion: Merrill hernandez [facility] S ource: EHR Neuroradiologist marilee: N Faraz ce ID: [id number] Angel lable Time: 09:45:00 AM Sravani Del Castillo null, [facility] 1 12:03:15 Rubella non-immu ne 142243181 Completed 201905/02/2020 needs MMR postpart um Sravani Del Castillo null, [facility] 1 12:10:32 Pregnanc y 75830083 Completed 202010/07/2020 Samira magaña null, [facility] 1 11:16:35 Postpart um hemorrha ge 96563975 Completed Transfx 2 units Samira Bautistahumphreyshannan magaña null, [facility] 1 11:16:29 Large for gestatio n age fetus 766438771 Completed Last baby 9#11oz EFW @ 38 wks Samira Mosquedasarajordanhumphreyshannan magaña null, [facility] 1 11:16:29 Anxiety 33977147 Active Daniella Katz null, [facility] 4 17:59:43 Postpart um hemorrha ge 21715330 Active first delivery Piper Da Silva CNM [address], [place], [address], [place] [facility] 4 02:32:31 Large for gestatio n age fetus 333773442 Active history Piper Da Silva CNM [address], [place], [address], [place] [facility] 4 02:32:59 Body mass index 40+ - severely obese 860004701 Active antental testing at 34wks Michelle Bright [facility] 4 18:02:46 Body mass index 40+ - severely obese 279521621 Active antental testing at 34wks Michelle Bright [facility] 4 18:02:46 Problem Notes None recorded. Procedures Surgical History Date Name Laterality Status Provider Name and Address Organization Details Recorded Time 4 Date of Last Pap Smear completed Daniellahannah Katz [facility] 01/05/2024 15:17:26 5 procedure on femur completed Indy Montgomery [facility] 06/16/2019 14:22:25 5 extraction of wisdom tooth completed [facility] 03/24/2022 17:18:34 7 Remove tonsils and adenoids completed [facility] 03/24/2022 17:18:14 Imaging Results Imaging Date Name Status LastModified by Organiz ation Details LastModified Time 04/05/2024 US, obstetric, follow-up completed [address], [place], [address], 04/05/2024 18:21:15 04/05/2024 US, obstetric, biophysical profile + non-stress test completed [address], [place], [address], 04/05/2024 18:21:24 04/05/2024 US, obstetric, follow-up completed [email or web address] [address], [place], [address], 04/05/2024 20:49:15 04/05/2024 non-stress test completed [email or web address] [place] [address], [place], [address], 04/05/2024 18:35:34 04/05/2024 non-stress test completed [email or web address] [place] [address], [place], [address], 04/05/2024 18:38:42 03/29/2024 non-stress test completed [email or web address] [place] [address], [place], [address], 04/05/2024 18:42:48 04/20/2024 US, obstetric, biophysical profile + non-stress test completed [email or web address] [place] [address], [place], [address], 04/20/2024 10:00:15 04/19/2024 US, obstetric, biophysical profile + non-stress test completed [email or web address] [address], [place], [address], 04/19/2024 20:41:43 04/19/2024 non-stress test completed [email or web address] [place] [address], [place], [address], 04/19/2024 21:23:19 04/19/2024 non-stress test completed [email or web address] [place] [address], [place], [address], 04/19/2024 21:25:19 04/26/2024 US, obstetric, biophysical profile + non-stress test completed [email or web address] [place] [address], [place], [address], 04/26/2024 18:06:44 04/26/2024 US, obstetric, follow-up completed [email or web address] [address], [place], [address], 04/30/2024 21:55:01 04/26/2024 non-stress test completed [email or web address] [place] [address], [place], [address], 04/28/2024 09:18:35 04/26/2024 non-stress test completed [email or web address] Informati on not available 04/28/2024 18:35:05 05/03/2024 US, obstetric, follow-up completed [email or web address] [address], [place], [address], 05/09/2024 11:48:08 05/03/2024 US, obstetric, follow-up completed [email or web address] [place] [address], [place], [address], 05/03/2024 18:47:28 05/03/2024 US, obstetric, biophysical profile + non-stress test completed [email or web address] [place] [address], [place], [address], 05/03/2024 18:47:42 05/04/2024 non-stress test completed [email or web address] [place] [address], [place], [address], 05/04/2024 09:48:17 05/10/2024 non-stress test completed [email or web address] [place] [address], [place], [address], 05/10/2024 17:28:38 05/10/2024 US, obstetric, biophysical profile + non-stress test [email or web address] [address], [place], [address], 05/10/2024 17:59:19 05/10/2024 US, obstetric, biophysical profile + non-stress test completed [email or web address] [address], [place], [address], 05/10/2024 18:35:25 Procedure Notes None recorded. Medical Equipment None Reported. Allergies Allergen ID Allergen Name Allergen Category Reaction Reaction Severity Criticality Documentation Date Start Date Code Code System Note Provider Name and Address Organization Details Recorded Time 43 Product containin g penicilli n (product) medicatio n Not available Not available Not available 06/07/2019 30678 8001 SNOMED Indy [facility] 0 10:14:56 Medications Name Sig Start Date Stop Date Status Note LastModified by Organization Details LastModified Time dicloxacill in 500 mg capsule TAKE 1 CAPSULE BY MOUTH EVERY 6 HOURS 10/29 completed Not Available Not Available Not Available buspirone 5 mg tablet TAKE 1 TABLET BY MOUTH TWICE DAILY 03/29 completed Not Available Not Available Not Available sumatriptan 100 mg tablet 09/06 completed Not Available Not Available Not Available Reglan 10 mg tablet Take 1 tablet 4 times a day by oral route. 06/18 completed Not Available Not Available Not Available ketorolac 10 mg tablet 09/06 completed Not Available Not Available Not Available Zofran 4 mg tablet Take 2 tablets twice a day by oral route. 06/18 completed Not Available Not Available Not Available dexamethaso ne 2 mg tablet 03/29 completed Not Available Not Available Not Available cefdinir 300 mg capsule TAKE 1 CAPSULE BY MOUTH EVERY 12 HOURS 03/29 completed Not Available Not Available Not Available azithromyci n 500 mg tablet 03/29 completed Not Available Not Available Not Available iron 10/09 completed Not Available Not Available Not Available 10/09 completed Not Available Not Available Not Available 28 mg iron-800 mcg tablet 10/30 completed Not Available Not Available Not Available EluRyng 0.12 mg-0.015 mg/24 hr vaginal ring INSERT ONE RING VAGINALLY EVERY MONTH DIRECTED 03/29 completed Not Available Not Available Not Available ID NOW COVID-19 Test Kit TEST DIRECTED TODAY 04/29 completed Not Available Not Available Not Available Vitals Date Recorded Body weight Body mass index (BMI) Body height Systolic blood pressure Diastolic blood pressure Provider Name and Address Organization Details Last Updated DateTime 05/03/2024 665637.8 636 g 45.5 kg/m2 167.01 cm 128 mm[Hg] 79 mm[Hg] Daniella Katz [facility] 5 18:25:30 Date Recorded Body height Body mass index (BMI) Body weight Systolic blood pressure Diastolic blood pressure Provider Name and Address Organization Details Last Updated DateTime 05/10/2024 167.01 cm 45 kg/m2 785284.0 9 g 129 mm[Hg] 84 mm[Hg] Daniella Katz [facility] 5 17:51:52 Social History Question Answer Notes LastModified by Organizat ion Details LastModified Time Tobacco Smoking Status Never Smoker Not Available [facility] 01/02/2020 03:28:11 What Is Your Level Of Alcohol Consumption? None [email or web address] Information not available 04/30/2023 If You Are , What Was Your Level Of Alcohol Consumption Prior To ? Occasional [email or web address] Information not available 01/05/2024 Are You Blind Or Do You Have Difficulty Seeing? No [email or web address] Information not available 09/18/2020 What Is Your Level Of Caffeine Consumption? Moderate [email or web address] Information not available 04/30/2023 How Much Tobacco Do You Chew? None [email or web address] Information not available 04/30/2023 In The 14 Days Before Symptom Onset, Have You Had Close Contact With A Laboratory-confir med COVID-19 While That Case Was Ill? No [email or web address] Information not available 09/18/2020 In The 14 Days Before Symptom Onset, Have You Had Close Contact With A Person Who Is Under Investigation For COVID-19 While That Person Was Ill? No [email or web address] Information not available 09/18/2020 Have You Been To An Area Known To Be High Risk For COVID-19? No [email or web address] Information not available 09/18/2020 Are You Deaf Or Do You Have Serious Difficulty Hearing? No [email or web address] Information not available 09/18/2020 What Type Of Diet Are You Following? REGULAR [email or web address] Information not available 09/18/2020 What Is The Highest Grade Or Level Of School You Have Completed Or The Highest Degree You Have Received? 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 Yes Information not available 04/30/2023 What Was The Date Of Your Most Recent Tobacco Screening? 05/10/2024 [email or web address] Information not available 05/10/2024 Do You Use Protection During Sex? No [email or web address] Information not available 04/30/2023 Do You Use Your Seat Belt Or Car Seat Routinely? Yes [email or web address] Information not available 09/18/2020 Do You Have Smoke And Carbon Monoxide Detectors In Your Home? Yes [email or web address] Information not available 09/18/2020 Do You Or Have You Ever Used Smokeless Tobacco? Never Used Smokeless Tobacco [email or web address] Information not available 02/20/2020 How Much Tobacco Do You Smoke? No [email or web address] Information not available 02/20/2020 Do You Feel Stressed (tense, Restless, Nervous, Or Anxious, Or Unable To Sleep At Night)? LV01687-3 [email or web address] Information not available 04/30/2023 Do You Use Any Illicit Or Recreational Drugs? No [email or web address] Information not available 09/18/2020 Do You Use Sunscreen Routinely? Yes [email or web address] Information not available 09/18/2020 Has Tobacco Cessation Counseling Been Provided? No [email or web address] Information not available 09/18/2020 Have You Used IV Drugs? No [email or web address] Information not available 04/30/2023 Do You Or Have You Ever Used Any Other Forms Of Tobacco Or Nicotine? No [email or web address] Information not available 09/18/2020 Sex: Unknown Functional Status Question Answer Note LastModified by Organizat ion Details LastModified Time Do you have difficulty walking or climbing stairs? No [email or web address] Information not available 03/24/2022 Are you able to walk? YESWOREST [email or web address] Information not available 09/18/2020 Are you able to care for yourself? Yes [email or web address] Information not available 03/24/2022 Do you have difficulty dressing or bathing? No [email or web address] Information not available 03/24/2022 What is your exercise level? Moderate [email or web address] Information not available 04/30/2023 Mental Status None recorded. Family History Relationship Description Onset Age of this Age Resolved Age Notes LastModified by Organization Details LastModified Time Maternal Grandmother Diabetes mellitus [email or web address] Not available 2019 10:16:45 Father Hypertensive disorder [email or web address] Not available 2019 10:17:08 Father Malignant tumor of esophagus 51 [email or web address] Not available 06/2024 16:47:35 Medical History Condition Response Allergies (Food, seasonal, environmental ) N Other N Drug/Latex Allergies/Reactions N Breast Cancer N Blood Transfusion N Dermatologic Disorders N Lung Disease N Defects or Inherited Disease N Breast Problem N Gestational Diabetes N Hematologic disorders N Anesthesia Complications N History of STI N Deep Vein Thrombosis N Polycystic ovary syndrome N Anxiety Disorder Y Autoimmune disease N Arthritis N Polyps N Infertility N Acid Reflux (GERD) N History of abnormal pap N Cancer N Varicosities N Stroke N Neurologic/Epilepsy N Endometriosis N High Cholesterol N Fibromyalgia N Headaches N Kidney Disease N Heart Problems N Thyroid Problems N Kidney or Bladder Problems N GI Problems N Eating Disorder N Anemia N Art (IVF or FET) N Psychiatric Illness N Ovarian Cancer N Diabetes N Pulmonary (TB, Asthma) N Hepatitis/Liver Disease N No Past Medical History N Eczema N Urinary Tract Infection N Abuse/Domestic Violence N Asthma N Trauma/Violence N Depression/ depression N Heart Disease N Pre-Eclampsia N Hypertension N Osteoporosis N Thrombophilias N Gynecological History Statement/Question Response Abnormal Pap N Date of Last Mammogram Date of LMP 09/13/2023 N Was last menstrual period normal Y STIs/STDs N HPV Vaccine N Duration of Flow (days) 4 Current Control Method Age at First Child 24 Date of control 04/13/2023 Date of Last Colonoscopy Frequency of Cycle (Q days) 30 Sexually Active? Y Date of DEXA bone scan Age of first menstrual cycle 14 Date of Last Pap Smear 04/30/2023 Sexual Problems? N LMP Definite N Obstetrics History GPAL:G 4 P 2 0 1 2 Type Value Full Term 2 Spontaneous 1 Living 2 Total 4 Past Encounters Encounter ID Performer Location Encounter Start Date Encounter Closed Date Diagnosis/Indication Diagnosis SNOMED-CT Code Diagnosis ICD10 Code Diagnosis Note [id number] Anurag Pierce [place] [address] [address] 06/07/2019 09:59:26 06/08/2019 18:07:51 Normal [id number] Z34.83 1413 [facility] [address],[place] [address] 06/19/2019 16:36:27 06/20/2019 14:24:41 Routine care [id number] Z34.93 3017 [facility] [address],[place] [address] 07/03/2019 16:23:36 07/04/2019 09:48:58 Routine care [id number] Z34.93 4665 [facility] [address],[place] [address] 07/17/2019 16:29:50 07/18/2019 11:05:06 Routine care [id number] Z34.93 5412 [facility] [address],[place] [address] 07/25/2019 16:21:18 08/15/2019 18:33:22 Routine care [id number] Z34.93 6789 Piper Da Silva [facility] [address],[place] [address] 08/04/2019 14:15:21 08/04/2019 14:49:55 Routine care [id number] Z34.93 7587 [facility] [address],[place] [address] 1 08/10/2019 14:06:25 08/10/2019 16:27:04 Routine care [id number] Z34.93 8544 [facility] [address],[place] [address] 08/17/2019 14:23:54 08/17/2019 14:52:25 Routine care [id number] Z34.93 53310 [facility] [address],[place] [address] 09/07/2019 11:26:48 09/07/2019 14:50:01 Past history of gestational hypertension 485040685 Z87.59 No symptoms and bp has improved. Assessment normal. RTC for routine pp visit. PIH precaution s given. [address] Anurag Pierce [address] [address] 10/10/2019 10:32:16 10/10/2019 11:40:32 state 77139507 Z39.2 Continue to watch for signs/symp toms of post depression . Return one year from last pap smear for a well woman exam. Will schedule in 1 month. Patient received above instructio ns, and questions have been answered. If you have any questions please call or respond to this email. Patient was made aware of the patient portal and may obtain a paper copy of today's plan if desired [id number] Anurag Pierce [place] [address],[place] [address] 01/17/2020 10:33:05 01/17/2020 11:55:10 Gynecologic examination 56564223 Z01.419 Take Calcium with Vitamin D 1200mg daily if not receiving in daily diet. It is strongly advised to have an annual flu shot and up can obtain at most pharmacies . If you have not had a TDap shot in the last 10 years you should obtain one as well. Discussed with patient & provided with informatio n regarding Gardisil vaccine to prevent the 4 strains for HPV that cause cervical cancer if under age 26. Encourage safe sexual practices, to use condoms and limit partners if not already in a monogamous relationsh ip. Do monthly self breast exams. Have mammogram yearly or every other year depending on family history. BRCA testing is now available for patients with strong genetic history of female cancer. If interested contact the office. Engage in daily exercise of low impact aerobic exercise 45-60 minutes 4-5 times weekly. Avoid tobacco and illicit drugs as well as using moderation with alcohol intake less than 1-2 8 oz beverages daily. This lifestyle behavior pattern will lead to less health conditions and longer life span. If BMI greater than 25 weight watchers or dietary consult advised. Patient received above instructio ns, and questions have been answered. If you have any questions please call or respond to this email. Patient was made aware of the patient portal and may obtain a paper copy of today's plan if desired. [id number] Anurag Pierce [place] [address],[place] [address] 02/20/2020 11:33:05 02/20/2020 12:49:28 test positive [id number] Z32.01 Risk factors addressed: Tobacco Cessation, Safe Sexual Practices, environmen hilda, work hazards, travel restrictio ns, seat belt use.Eat a health well balanced diet, avoid alcohol, tobacco, and street drugs. Engage in daily low impact exercise, avoid temperatur e extremes, and cat, rodent, and bird feces.Avoi d travel to areas where zika virus is a concern.Fi rst look offered to patient. First look accepted by patient and will be scheduled. Sequential Screen handout given and discussed with patient.I also do not see cf/sma results. Pt agrees to have drawn with 12 week labs. Childbirth classes recommende d.New OB sheet given. If previous , counseling .Pt verbalizes that she understand s the importance of above instructio ns.All questions were answered. Patient reminded to have annual well woman examinatio n and address [facility] . [id number] [facility] [address],[place] [address] 02/20/2020 11:32:03 02/21/2020 09:00:43 80176 [facility] [address],[place] [address] 02/28/2020 15:30:19 02/28/2020 16:55:07 Threatened miscarriage [id number] O20.0 Z3A.09 85778 Juan Schaefer MD [place] [address],[place] [address] 03/21/2020 16:54:50 03/22/2020 11:51:26 Routine care [id number] Z34.91 [id number] [facility] [address],[place] [address] 03/21/2020 16:55:46 03/21/2020 17:31:45 screening [id number] Z36.82 88033 Juan Schaefer MD [place] [address],[place] [address] 05/03/2020 14:40:48 05/03/2020 16:32:16 Routine care [id number] Z34.91 49214 [facility] [address],[place] [address] 05/13/2020 14:43:49 05/14/2020 18:59:31 Routine care [id number] Z34.93 27776 [facility] [address],[place] [address] 05/13/2020 14:44:08 05/13/2020 16:35:20 screening for malformation [id number] Z36.3 11184 [facility] [address],[place] [address] 06/10/2020 15:17:54 06/10/2020 17:30:27 Routine care [id number] Z34.93 16503 [facility] [address],[place] [address] 07/09/2020 09:58:09 07/09/2020 10:28:17 Routine care [id number] Z34.93 16786 [facility] [address],[place] [address] 07/23/2020 16:03:51 07/23/2020 17:28:58 Routine care [id number] Z34.93 [id number] [facility] [address],[place] [address] 08/02/2020 15:54:34 08/02/2020 16:29:35 Uterine size for dates discrepancy [id number] O26.843 Z3A.31 26026 [facility] [address],[place] [address] 08/08/2020 14:47:31 08/08/2020 16:11:19 Routine care [id number] Z34.93 57441 [facility] [address],[place] [address] 08/08/2020 14:46:32 08/08/2020 15:45:43 Polyhydramnios [id number] O40.3XX0 Z3A.32 01962 [facility] [address],[place] [address] 08/15/2020 17:18:04 08/16/2020 15:28:10 Polyhydramnios [id number] O40.3XX0 Z3A.33 69966 [facility] [address],[place] [address] 08/20/2020 16:05:39 08/21/2020 17:06:02 Routine care [id number] Z34.93 74340 [facility] [address],[place] [address] 08/20/2020 16:11:27 08/20/2020 16:54:04 Polyhydramnios [id number] O40.3XX0 Z3A.34 63726 [facility] [address],[place] [address] 1 09/03/2020 15:41:40 09/03/2020 16:36:46 Routine care [id number] Z34.93 [id number] [facility] [address],[place] [address] 09/03/2020 15:41:00 09/03/2020 16:23:50 Excessive growth affecting management of mother 69393637 O36.63X0 O40.3XX0 Z3A.36 57345 [facility] [address],[place] [address] 09/10/2020 16:00:52 09/11/2020 14:01:09 Routine care [id number] Z34.93 16153 [facility] [address],[place] [address] 09/18/2020 18:02:33 09/23/2020 16:16:04 Routine [facility] [id number] Z34.93 [facility] [address],[place] [address] 10/30/2020 12:33:56 10/30/2020 16:22:38 state 15468829 Z39.2 Continue to watch for signs/symp toms of post depression . Return one year from last pap smear for a well woman exam. Will schedule in the next few weeks. New insurance than with last [employer]. Vilma lnua. Patient received above instructio ns, and questions have been answered. If you have any questions please call or respond to this email. Patient was made aware of the patient portal and may obtain a paper copy of today's plan if desired [id number] [facility] [address],[place] [address] 11/11/2020 12:41:24 11/12/2020 09:57:42 Gynecologic examination 59979087 Z01.419 Z11.3 Z11.8 [facility] care management [id number] Z30.9 74831 [facility] [address],[place] [address] 11/11/2020 14:06:03 11/11/2020 15:34:21 Gynecologic examination 24122909 Z01.419 Z11.3 Z11.8 Take Calcium with Vitamin D 1200mg daily if not receiving in daily diet. It is strongly advised to have an annual flu shot and up can obtain at most pharmacies . If you have not had a TDap shot in the last 10 years you should obtain one as well. Discussed with patient & provided with informatio n regarding Gardisil vaccine to prevent the 4 strains for HPV that cause cervical cancer if under age 26. Encourage safe sexual practices, to use condoms and limit partners if not already in a monogamous relationsh ip. Do monthly self breast exams. Have mammogram yearly or every other year depending on family history. BRCA testing is now available for patients with strong genetic history of female cancer. If interested contact the office. Engage in daily exercise of low impact aerobic exercise 45-60 minutes 4-5 times weekly. Avoid tobacco and illicit drugs as well as using moderation with alcohol intake less than 1-2 8 oz beverages daily. This lifestyle behavior pattern will lead to less health conditions and longer life span. If BMI greater than 25 weight watchers or dietary consult advised. Patient received above instructio ns, and questions have been answered. If you have any questions please call or respond to this email. Patient was made aware of the patient portal and may obtain a paper copy of today's plan if desired. Contracept ion care management [id number] Z30.9 Discussed all control options in great detail. Pt would like to start nuvaring. She is aware of the risks and benefits. She does not have any medical condition that is contraindi cated with the use of estrogen containing control. Pt will place the nuvaring on the first wednesday following the start of her period. She is aware it is not effective for control the first month. She is also aware of the importance of timely insertion and removal. Encouraged use of condoms as the nuvaring does not protect against STD's. Will return in 3 months for med check. Consent was read and signed. Pt verbalized understand ing. [id number] [facility] [address],[place] [address] 02/05/2021 09:43:18 02/05/2021 10:57:32 Contraception care management [id number] Z30.9 Happy with nuvaring. Return for annual exam or sooner if any problems or concerns. [id number] Anurag [facility] [address],[place] [address] 03/24/2022 16:35:48 03/25/2022 17:40:41 Gynecologic examination 32166834 Z01.419 Z11.3 Z11.8 Take Calcium with Vitamin D 1200mg daily if not receiving in daily diet. It is strongly advised to have an annual flu shot and up can obtain at most pharmacies . If you have not had a TDap shot in the last 10 years you should obtain one as well. Discussed with patient & provided with informatio n regarding Gardisil vaccine to prevent the 4 strains for HPV that cause cervical cancer if under age 26. Encourage safe sexual practices, to use condoms and limit partners if not already in a monogamous relationsh ip. Do monthly self breast exams. Have mammogram yearly or every other year depending on family history. BRCA testing is now available for patients with strong genetic history of female cancer. If interested contact the office. Engage in daily exercise of low impact aerobic exercise 45-60 minutes 4-5 times weekly. Avoid tobacco and illicit drugs as well as using moderation with alcohol intake less than 1-2 8 oz beverages daily. This lifestyle behavior pattern will lead to less health conditions and longer life span. If BMI greater than 25 weight watchers or dietary consult advised. Patient received above instructio ns, and questions have been answered. If you have any questions please call or respond to this email. Patient was made aware of the patient portal and may obtain a paper copy of today's plan if desired. [facility] ion care management [id number] Z30.9 Happy with nuvaring. [id number] Piper Da Silva [facility] [address],[place] [address] 04/30/2023 15:59:06 04/30/2023 16:48:20 Mixed anxiety and depressive disorder [id number] F41.8 reviewed se risks and benefits, if suicidal thoughts to EDphone visit 8 weeks Gynecologi c examination 45644532 Z01.419 [id number] [facility] [address],[place] [address] 12/21/2023 13:46:05 12/21/2023 14:44:24 Spotting per vagina in 336390865 O26.859 Z36.87 Z3A.19 [id number] [facility] [address],[place] [address] 01/05/2024 13:47:00 01/05/2024 15:00:24 screening for malformation 888588391 Z36.3 Z3A.21 [id number] Piper Da Silva [facility] [address],[place] [address] 1 01/05/2024 14:04:56 01/06/2024 10:52:47 screening 603290535 Z36.89 Venereal d isease screening 909726006 Z11.3 Routine an tenatal care 343203719 Z34.93 Gestation period, 21 weeks 32753022 Z3A.21 [id number] CHAD FIGUEROA MD [place] [address],[place] [address] 02/01/2024 17:53:23 02/03/2024 15:45:02 Body mass index 40+ - severely obese 018182103 Z68.41 Past pregn kenneth history of delivery of macrosomal infant 7965070296 9102 Z87.59 - repeat growth US at 32 weeks Late entry into care 297301358 O09.32 Gestation period, 25 weeks 90637778 Z3A.25 [id number] CHAD FIGUEROA MD [place] [address],[place] [address] 02/18/2024 10:26:43 02/18/2024 11:14:23 Maternal obesity complicating , childbirth and the puerperium, antepartum 8747797896 07 O99.213 - 34 week testing Large for gestation age fetus 903779844 O36.60X0 - hx of- will recheck growth US in 3rd trimester Gestation period, 27 weeks 51755964 Z3A.27 - continue pNV [id number] [facility] [address],[place] [address] 03/08/2024 17:29:12 03/09/2024 12:21:10 Maternal obesity complicating , childbirth and the puerperium, antepartum 4091827951 07 O99.213 Z3A.30 [id number] [facility] [address],[place] [address] 03/08/2024 17:29:25 03/09/2024 14:18:28 Routine care 861054574 Z34.93 [id number] [facility] [address],[place] [address] 03/29/2024 15:18:50 03/29/2024 15:48:04 Maternal obesity complicating , childbirth and the puerperium, antepartum 8732089928 07 O99.213 Z3A.33 [id number] Daniella Katz [place] [address],[place] [address] 03/29/2024 15:19:17 03/30/2024 10:28:49 Maternal obesity complicating , childbirth and the puerperium, antepartum 8712178699 07 O99.210 [id number] Piper Da Silva [facility] [address],[place] [address] 03/29/2024 15:19:33 03/29/2024 16:47:31 Gestation period, 33 weeks 05546858 Z3A.33 [id number] [facility] [address],[place] [address] 04/05/2024 16:45:47 04/06/2024 14:43:58 Maternal obesity complicating , childbirth and the puerperium, antepartum 5805176900 07 O99.210 [id number] Yulissa [facility] [address],[place] [address] 1 04/05/2024 16:47:25 04/05/2024 18:08:25 Maternal obesity complicating , childbirth and the puerperium, antepartum 0110351184 07 O99.213 Z3A.34 [id number] Piper Da Silva [facility] [address],[place] [address] 1 04/05/2024 16:47:59 04/06/2024 06:05:22 Gestation period, 34 weeks 42709376 Z3A.34 [id number] Daniella Katz [place] [address],[place] [address] 1 04/19/2024 16:51:39 04/20/2024 10:05:44 Maternal obesity complicating , childbirth and the puerperium, antepartum 7461368405 07 O99.210 [id number] [facility] [address],[place] [address] 04/19/2024 16:51:55 04/20/2024 05:59:01 Maternal obesity complicating , childbirth and the puerperium, antepartum 4201947355 07 O99.213 Z3A.36 [id number] [facility] [address],[place] [address] 04/19/2024 16:52:09 04/20/2024 05:50:09 Gestation period, 36 weeks 90125232 Z3A.36 [id number] Daniella Katz [place] [address],[place] [address] 04/26/2024 16:46:29 04/28/2024 13:34:09 Maternal obesity complicating , childbirth and the puerperium, antepartum 4960714217 07 O99.210 [id number] Anna Johnson [place] [address],[place] [address] 1 04/26/2024 16:46:59 04/27/2024 12:53:38 Maternal obesity complicating , childbirth and the puerperium, antepartum 9266282186 07 O99.213 Z3A.37 [id number] Piper Da Silva [facility] [address],[place] [address] 1 04/26/2024 16:47:16 04/27/2024 12:54:00 Gestation period, 37 weeks 11139912 Z3A.37 [id number] Marisol Eaton [place] [address],[place] [address] 05/03/2024 16:50:19 05/04/2024 11:15:34 Maternal obesity complicating , childbirth and the puerperium, antepartum 0515264910 07 O99.210 [id number] Yulissa Jaramillo [place] [address],[place] [address] 05/03/2024 16:51:24 05/04/2024 07:48:50 Maternal obesity complicating , childbirth and the puerperium, antepartum 1561600358 07 O99.213 Z3A.38 [id number] [facility] [address],[place] [address] 05/03/2024 16:51:38 05/04/2024 09:16:01 Gestation period, 38 weeks 56220091 Z3A.38 [id number] Marisol Eaton [place] [address],[place] [address] 05/10/2024 16:51:58 05/10/2024 17:36:01 Maternal obesity complicating , childbirth and the puerperium, antepartum 0560494057 07 O99.210 [id number] Yulissa Alanizjudy [place] [address],[place] [address] 1 05/10/2024 16:52:29 05/10/2024 17:48:22 Maternal obesity complicating , childbirth and the puerperium, antepartum 2568915537 07 O99.213 Z3A.39 [id number] Piper Da Silva [facility] [address],[place] [address] 1 05/10/2024 16:52:44 05/10/2024 18:02:31 Gestation period, 39 weeks 87792611 Z3A.39 Health Concerns Section Related Observation LastModified by Organization Detai ls LastModified Time None Recorded Concern Status LastModified by Organization Details LastModified Time None Recorded Advance Directives Directive None Recorded Payers Encounter Date Sequence Insurance Name Policy Number Policy Solares Covered Member ID Solares Member ID Guarantor Name 05/03/2024 1 [place] 112 Singh [place] [id number] Singh Cecil 05/03/2024 1 [place] 112 Singh [place] [id number] Singh Pichardoington 05/10/2024 1 [place] 112 Singh Pich[place] [id number] Singh Cecil 05/10/2024 1 [place] 112 Singh Pichardo[place] [id number] Singh Pichardoington 05/10/2024 1 [place] 112 Singh Pichardoington [id number] Singh Pichardoington OBGyn Episode Ob Episode Information Episode Created Date Number of Fetuses Patient Bloodtype Patient rh Status Prepregnancy Weight lbs Domestic Partner Domestic Partner Phone Father Name Iron Pellet Tester Status 06/07/19 20 1 O Positive 233 CLOSED Fetus Data First Name Last Name Admitted to NICU Weight (g) Sex Living Outcome Pediatric Complications Fetus ID Race Codes Race Delivery Type 4394.17 25 F Full Term 105 Vaginal Delivery Problems Problem Notes Pt c/o swelling in feet and hands , trace nausea and vomiting and arms that itch at night time, jclarisa montgomery Problem Name Start Date End Date Resolution Snomed Code Not e Pruritic disorder 06/07/2019 [id number] Timothy Calculation Initial Timothy Date Initial Exam Date Initial Exam Provider Initial Ultrasound Date Last Menstrual Period Date Ultra Sound Weeks Gestation 08/24/2019 06/07/2019 01/23/2019 11/19/2018 9 Eighteen To Twenty Week Timothy Update Ultra Sound Date Fundal Height At Umbil Quickening Date Ultra Sound Latest Weeks Gestation Final Timothy Confirmed By Final Timothy Confirmed Date Final Timothy Date Ultra Sound Latest Days Gestation 0 [email or web address] 07/17/2019 08/26/19 20 0 Pre-gelacio Flowsheet Flowsheet Date 06/07/2019 Powers Score Blood Edema Fundus Height Fundus Units Glucose Ketones Leukocytes Nitrite Labor Signs Protein Cervic Dilation Cervic Effacement Cervic Station trace 29 Type Weight in lbs Pre/Post Dialysis Refused BP Diastolic BP Location Tested BP Systolic BP Type 79 116 Fetus Heart Rate Present A 148 Fetus Movement A Yes Comments Itching in arms and legs onl y at night. Trace edema in feet. Flowsheet Date 06/19/2019 Powers Score Blood Edema Fundus Height Fundus Units Glucose Ketones Leukocytes Nitrite Labor Signs Protein Cervic Dilation Cervic Effacement Cervic Station 32 Type Weight in lbs Pre/Post Dialysis Refused Weight 241.88026894328 BP Diastolic BP Location Tested BP Systolic BP Type 83 125 Fetus Heart Rate Present A 146 Fetus Movement A Yes Comments Pt doing well. Flowsheet Date 02/14/2019 Powers Score Blood Edema Fundus Height Fundus Units Glucose Ketones Leukocytes Nitrite Labor Signs Protein Cervic Dilation Cervic Effacement Cervic Station none 12 trace Type Weight in lbs Pre/Post Dialysis Refused Weight 231.146612655466 BP Diastolic BP Location Tested BP Systolic BP Type 74 114 Fetus Heart Rate Present A 155 Fetus Movement A No Comments This patient is a 23-year-ol d female presents for initial visit. She is a 010 at 12 weeks gestation. She has no problems. We'll begin routine care. Flowsheet Date 03/15/2019 Powers Score Blood Edema Fundus Height Fundus Units Glucose Ketones Leukocytes Nitrite Labor Signs Protein Cervic Dilation Cervic Effacement Cervic Station trace Type Weight in lbs Pre/Post Dialysis Refused Weight 225.297468809438 BP Diastolic BP Location Tested BP Systolic BP Type 78 119 Fetus Heart Rate Present A 148 Fetus Movement Comments pt states that having some n ormal discharge and nausea Flowsheet Date 04/11/2019 Powers Score Blood Edema Fundus Height Fundus Units Glucose Ketones Leukocytes Nitrite Labor Signs Protein Cervic Dilation Cervic Effacement Cervic Station none 21 trace Type Weight in lbs Pre/Post Dialysis Refused Weight 230.160904979852 BP Diastolic BP Location Tested BP Systolic BP Type 76 129 sitting Fetus Heart Rate Present A 145 Fetus Movement A Yes Comments : c/o RLQ pain, seeing chiro practor. Frequent nausea, emesis a few times a week (improving). Expecting baby girl, plans to breast feed, advised flu vaccine Flowsheet Date 05/09/2019 Powers Score Blood Edema Fundus Height Fundus Units Glucose Ketones Leukocytes Nitrite Labor Signs Protein Cervic Dilation Cervic Effacement Cervic Station trace trace Type Weight in lbs Pre/Post Dialysis Refused Weight 237.780536010464 BP Diastolic BP Location Tested BP Systolic BP Type 76 115 sitting Fetus Heart Rate Present A 135 Fetus Movement A Yes Comments : c/o RLQ pain, seeing chiro practor. Frequent nausea, emesis a few times a week (improving). Expecting baby girl, plans to breast feed, advised flu vaccine Flowsheet Date 07/03/2019 Powers Score Blood Edema Fundus Height Fundus Units Glucose Ketones Leukocytes Nitrite Labor Signs Protein Cervic Dilation Cervic Effacement Cervic Station 32 trace Type Weight in lbs Pre/Post Dialysis Refused Weight 245.115120476768 BP Diastolic BP Location Tested BP Systolic BP Type 85 137 sitting Fetus Heart Rate Present A 140 Fetus Movement A Yes Comments Pt c/o clear discharge x 1 w [place]. Sent to L&D for r/o rupture. Flowsheet Date 07/17/2019 Powers Score Blood Edema Fundus Height Fundus Units Glucose Ketones Leukocytes Nitrite Labor Signs Protein Cervic Dilation Cervic Effacement Cervic Station 35 trace Type Weight in lbs Pre/Post Dialysis Refused Weight 247.843555049540 BP Diastolic BP Location Tested BP Systolic BP Type 83 114 sitting Fetus Heart Rate Present A 140 Fetus Movement A Yes Comments Itching has improved. Occasi onal contractions. Pt has decided to get TDAP at the hospital after delivery d/t covid risk at the pharmacy. Pre admit in 2 weeks. CALL ANURAG FOR DELIVERY PER PATIENT REQUEST Flowsheet Date 07/25/2019 Powers Score Blood Edema Fundus Height Fundus Units Glucose Ketones Leukocytes Nitrite Labor Signs Protein Cervic Dilation Cervic Effacement Cervic Station trace 36 Type Weight in lbs Pre/Post Dialysis Refused Weight 245.571770537678 BP Diastolic BP Location Tested BP Systolic BP Type 86 127 sitting Fetus Heart Rate Present A 132 Fetus Movement A Yes Comments Pt was seen over the weekend for contractions. She states she is only having irregular/infrequent cramping. PTL precautions discussed. Flowsheet Date 08/04/2019 Powers Score Blood Edema Fundus Height Fundus Units Glucose Ketones Leukocytes Nitrite Labor Signs Protein Cervic Dilation Cervic Effacement Cervic Station neg trace 38 trace 0cm 50% -3 Type Weight in lbs Pre/Post Dialysis Refused Weight 252.325420202239 BP Diastolic BP Location Tested BP Systolic BP Type 85 133 Fetus Heart Rate Present A 155 Fetus Movement A Yes Comments patient states that having c ramping, contractions, normal discharge, and swelling, gbs done, labor precautions Flowsheet Date 08/10/2019 Powers Score Blood Edema Fundus Height Fundus Units Glucose Ketones Leukocytes Nitrite Labor Signs Protein Cervic Dilation Cervic Effacement Cervic Station 38 trace 1cm Type Weight in lbs Pre/Post Dialysis Refused Weight 254.023728393833 BP Diastolic BP Location Tested BP Systolic BP Type 86 L arm 131 sitting Fetus Heart Rate Present A 150 Fetus Movement A Yes Comments Pt doing well. More contract ions. Labor precautions. If she has not delivered by her due date she would like MIL that day if possible. Flowsheet Date 08/17/2019 Opwers Score Blood Edema Fundus Height Fundus Units Glucose Ketones Leukocytes Nitrite Labor Signs Protein Cervic Dilation Cervic Effacement Cervic Station 39 2cm 40% -2 Type Weight in lbs Pre/Post Dialysis Refused Weight 257.679207439328 BP Diastolic BP Location Tested BP Systolic BP Type 84 L arm 132 sitting Fetus Heart Rate Present A 155 Fetus Movement A Yes Comments Pt doing well. Desires MIL 1 week from today. Labor precautions. Flowsheet Date 09/07/2019 Powers Score Blood Edema Fundus Height Fundus Units Glucose Ketones Leukocytes Nitrite Labor Signs Protein Cervic Dilation Cervic Effacement Cervic Station Type Weight in lbs Pre/Post Dialysis Refused Weight 221.524593019633 BP Diastolic BP Location Tested BP Systolic BP Type 82 L arm 118 sitting Fetus Heart Rate Present Fetus Movement Comments Flowsheet Date 10/10/2019 Powers Score Blood Edema Fundus Height Fundus Units Glucose Ketones Leukocytes Nitrite Labor Signs Protein Cervic Dilation Cervic Effacement Cervic Station Type Weight in lbs Pre/Post Dialysis Refused Weight 225.089701263709 BP Diastolic BP Location Tested BP Systolic BP Type 70 102 Fetus Heart Rate Present Fetus Movement Comments Flowsheet Date 01/17/2020 Powers Score Blood Edema Fundus Height Fundus Units Glucose Ketones Leukocytes Nitrite Labor Signs Protein Cervic Dilation Cervic Effacement Cervic Station Type Weight in lbs Pre/Post Dialysis Refused Weight 241.12638599513 BP Diastolic BP Location Tested BP Systolic BP Type 81 L arm 118 sitting Fetus Heart Rate Present Fetus Movement Comments Menstrual History Last Menstrual Date Menses Monthly On Bcp Conception Prior Menses Frequency Hcg Plus Date Menarche Onset Age 0911/19/2018 Genetic Screening And Infection History Question Response Note Mental Retardation/Autism false Patient's Age Will Be 35 Years Or Older At Estim ated Date of Delivery false Thalassemia (Belarusian, Brazilian, Mediterranean, Or Background): MCV < 80 false Neural Tube Defect (Meningomyelocele, Spina Bifi da, Or Anencephaly) false Congenital Heart Defect false Down Syndrome false Lewis-Sachs (eg, Sabianism, Cajun, Kyrgyz-Marin) f alse Ami Disease false Sickle Cell Disease Or Trait () false Hemophilia Or Other Blood Disorders false Muscular Dystrophy false Cystic Fibrosis false Baraga's Chorea false Intellectual Disability/Autism false If Yes, Was Person Tested For Fragile X? false Other Inherited Genetic Or Chromosomal Disorder false Maternal Metabolic Disorder (eg, Type 1 Diabetes , PKU) false Patient Or Baby's Father Had A Child With Defects Not Listed Above false Recurrent Loss, Or A Stillbirth false Medications (including Suppl ements, Vitamins, Herbs, OTC Drugs), Illicit/Recreational Drugs, Alcohol false If Yes, Agent(s) And Strength/Dosage false Any Other Genetic History false Live With Someone With TB Or Exposed To TB false Patient Or Partner Has History Of Genital Herpes false Rash Or Viral Illness Since Last Menstrual Perio d false History Of STD, Gonorrhea, Chlamydia, HPV, Syphi lis false Other Infection History false History of HIV false History of Hepatitis false Prior GBS-infected child false Hemoglobinopathy Or Carrier false Other Structural Defect false Recent Travel History Outside of Country false Delivery Information Delivery Date Delivery Type Labor Anesthesia Weeks Gestation Incision Type Labor Labor Length Hrs Delivered By Post Complications Tubal Sterilization Discharge Date Comments 0 Induce d 39.5 [email or web address] Discharge Information Feeding Method Contraceptive Method Maternal HG B and HCT Levels Ob Episode Information Episode Created Date Number of Fetuses Patient Bloodtype Patient rh Status Prepregnancy Weight lbs Domestic Partner Domestic Partner Phone Father Name Iron Pellet Tester Status 09/07/19 1 DELETED Timothy Calculation Initial Timothy Date Initial Exam Date Initial Exam Provider Initial Ultrasound Date Last Menstrual Period Date Ultra Sound Weeks Gestation 0 Eighteen To Twenty Week Timothy Update Ultra Sound Date Fundal Height At Umbil Quickening Date Ultra Sound Latest Weeks Gestation Final Timothy Confirmed By Final Timothy Confirmed Date Final Timothy Date Ultra Sound Latest Days Gestation 0 0 Menstrual History Last Menstrual Date Menses Monthly On Bcp Conception Prior Menses Frequency Hcg Plus Date Menarche Onset Age Delivery Information Delivery Date Delivery Type Labor Anesthesia Weeks Gestation Incision Type Labor Labor Length Hrs Delivered By Post Complications Tubal Sterilization Discharge Date Comments 0 39.5 Discharge Information Feeding Method Contraceptive Method Maternal HG B and HCT Levels Ob Episode Information Episode Created Date Number of Fetuses Patient Bloodtype Patient rh Status Prepregnancy Weight lbs Domestic Partner Domestic Partner Phone Father Name Iron Pellet Tester Status 03/21/19 21 1 CLOSED Fetus Data First Name Last Name Admitted to NICU Weight (g) Sex Living Outcome Pediatric Complications Fetus ID Race Codes Race Delivery Type , Spontane ous [id number] Timothy Calculation Initial Timothy Date Initial Exam Date Initial Exam Provider Initial Ultrasound Date Last Menstrual Period Date Ultra Sound Weeks Gestation 0 Eighteen To Twenty Week Timothy Update Ultra Sound Date Fundal Height At Umbil Quickening Date Ultra Sound Latest Weeks Gestation Final Timothy Confirmed By Final Timothy Confirmed Date Final Timothy Date Ultra Sound Latest Days Gestation 0 0 Menstrual History Last Menstrual Date Menses Monthly On Bcp Conception Prior Menses Frequency Hcg Plus Date Menarche Onset Age Delivery Information Delivery Date Delivery Type Labor Anesthesia Weeks Gestation Incision Type Labor Labor Length Hrs Delivered By Post Complications Tubal Sterilization Discharge Date Comments 9 Discharge Information Feeding Method Contraceptive Method Maternal HG B and HCT Levels Ob Episode Information Episode Created Date Number of Fetuses Patient Bloodtype Patient rh Status Prepregnancy Weight lbs Domestic Partner Domestic Partner Phone Father Name Iron Pellet Tester Status 03/21/19 21 1 O Positive 243 CLOSED Fetus Data First Name Last Name Admitted to NICU Weight (g) Sex Living Outcome Pediatric Complications Fetus ID Race Codes Race Delivery Type 3742.13 4 M true Full Term [id number] Vaginal Delivery Problems Problem Notes Problem Name Start Date End Date Resolution Snomed Code Not e hemorrhage [id number] Transfx 2 units Large for gestation age fetus [id number] Last baby 9#11o z EFW @ 38 wks Timothy Calculation Initial Timothy Date Initial Exam Date Initial Exam Provider Initial Ultrasound Date Last Menstrual Period Date Ultra Sound Weeks Gestation 10/01/2020 03/21/2020 02/28/2020 9 Eighteen To Twenty Week Timothy Update Ultra Sound Date Fundal Height At Umbil Quickening Date Ultra Sound Latest Weeks Gestation Final Timothy Confirmed By Final Timothy Confirmed Date Final Timothy Date Ultra Sound Latest Days Gestation 0 [email or web address] 03/21/2020 10/02/19 21 0 Pre-gelacio Flowsheet Flowsheet Date 03/21/2020 Powers Score Blood Edema Fundus Height Fundus Units Glucose Ketones Leukocytes Nitrite Labor Signs Protein Cervic Dilation Cervic Effacement Cervic Station 12 Type Weight in lbs Pre/Post Dialysis Refused Weight 249.105334315341 BP Diastolic BP Location Tested BP Systolic BP Type 77 R arm 127 sitting Fetus Heart Rate Present A 178 Fetus Movement Comments this patient is a 3 para 1011 at 12 weeks 2 days gestation. She has a history of a lwjdb-kuw-fllynbqksed-age . We discussed macrosomia and its recommendation for delivery. She was firm in wanting a vaginal even with a infant At over 10 lb estimated weight. she will need estimated weight at 38 weeks at a minimum. She has history of hemorrhage. Flowsheet Date 05/03/2020 Powers Score Blood Edema Fundus Height Fundus Units Glucose Ketones Leukocytes Nitrite Labor Signs Protein Cervic Dilation Cervic Effacement Cervic Station 18 trace Type Weight in lbs Pre/Post Dialysis Refused Weight 250.692418598530 BP Diastolic BP Location Tested BP Systolic BP Type 79 R arm 125 sitting Fetus Heart Rate Present A 145 Fetus Movement A No Comments Flowsheet Date 05/13/2020 Powers Score Blood Edema Fundus Height Fundus Units Glucose Ketones Leukocytes Nitrite Labor Signs Protein Cervic Dilation Cervic Effacement Cervic Station none neg Type Weight in lbs Pre/Post Dialysis Refused Weight 249.492925384463 BP Diastolic BP Location Tested BP Systolic BP Type 78 116 Fetus Heart Rate Present Fetus Movement A Yes Comments Doing well other than increa sed anxiety recently. Discussed ways to help manage anxiety levels. Not interested in medication at this time. Will discuss further at next visit or sooner if any worsening symptoms. No thoughts of harming herself others. Baseline anatomy scan to follow. Flowsheet Date 05/13/2020 Powers Score Blood Edema Fundus Height Fundus Units Glucose Ketones Leukocytes Nitrite Labor Signs Protein Cervic Dilation Cervic Effacement Cervic Station Type Weight in lbs Pre/Post Dialysis Refused BP Diastolic BP Location Tested BP Systolic BP Type Fetus Heart Rate Present Fetus Movement Comments Flowsheet Date 06/10/2020 Powers Score Blood Edema Fundus Height Fundus Units Glucose Ketones Leukocytes Nitrite Labor Signs Protein Cervic Dilation Cervic Effacement Cervic Station none 25 trace Type Weight in lbs Pre/Post Dialysis Refused Weight 256.191332673051 BP Diastolic BP Location Tested BP Systolic BP Type 71 118 Fetus Heart Rate Present A 133 Fetus Movement A Yes Comments Doing well. RTC in 4 weeks f or routine visit and gtt. Flowsheet Date 07/09/2020 Powers Score Blood Edema Fundus Height Fundus Units Glucose Ketones Leukocytes Nitrite Labor Signs Protein Cervic Dilation Cervic Effacement Cervic Station none 30 trace Type Weight in lbs Pre/Post Dialysis Refused Weight 263.237344209613 BP Diastolic BP Location Tested BP Systolic BP Type 84 130 Fetus Heart Rate Present A 135 Fetus Movement A Yes Comments Doing well. 1 hour gtt today .Visit per Z. Due SNM. Flowsheet Date 07/23/2020 Powers Score Blood Edema Fundus Height Fundus Units Glucose Ketones Leukocytes Nitrite Labor Signs Protein Cervic Dilation Cervic Effacement Cervic Station none 34 trace Type Weight in lbs Pre/Post Dialysis Refused Weight 263.450551940167 BP Diastolic BP Location Tested BP Systolic BP Type 81 123 Fetus Heart Rate Present A 140 Fetus Movement A Yes Comments Visit per Z. Due SNM. Pt had a headache last week that lasted about 24 hours. Unable to go in for evaluation. BP at home was 140/100. Since then she has checked daily and had normal readings. No h/a since then. No v/d or e/p. PIH precautions discussed. Fundal height 4 weeks ahead. She does have a history of with LGA baby. Growth u/s to be scheduled. Flowsheet Date 08/02/2020 Powers Score Blood Edema Fundus Height Fundus Units Glucose Ketones Leukocytes Nitrite Labor Signs Protein Cervic Dilation Cervic Effacement Cervic Station Type Weight in lbs Pre/Post Dialysis Refused BP Diastolic BP Location Tested BP Systolic BP Type Fetus Heart Rate Present Fetus Movement Comments Flowsheet Date 08/08/2020 Powers Score Blood Edema Fundus Height Fundus Units Glucose Ketones Leukocytes Nitrite Labor Signs Protein Cervic Dilation Cervic Effacement Cervic Station Type Weight in lbs Pre/Post Dialysis Refused BP Diastolic BP Location Tested BP Systolic BP Type Fetus Heart Rate Present Fetus Movement Comments Flowsheet Date 08/08/2020 Powers Score Blood Edema Fundus Height Fundus Units Glucose Ketones Leukocytes Nitrite Labor Signs Protein Cervic Dilation Cervic Effacement Cervic Station trace 36 trace Type Weight in lbs Pre/Post Dialysis Refused Weight 263.340124307886 BP Diastolic BP Location Tested BP Systolic BP Type 69 108 Fetus Heart Rate Present A 129 Fetus Movement A Yes Comments Doing well. Glucose test tod ay d/t poly. No contractions. Await u/s and glucose test recommendations. Flowsheet Date 08/15/2020 Powers Score Blood Edema Fundus Height Fundus Units Glucose Ketones Leukocytes Nitrite Labor Signs Protein Cervic Dilation Cervic Effacement Cervic Station Type Weight in lbs Pre/Post Dialysis Refused BP Diastolic BP Location Tested BP Systolic BP Type Fetus Heart Rate Present Fetus Movement Comments Flowsheet Date 08/20/2020 Powers Score Blood Edema Fundus Height Fundus Units Glucose Ketones Leukocytes Nitrite Labor Signs Protein Cervic Dilation Cervic Effacement Cervic Station trace 38 trace Type Weight in lbs Pre/Post Dialysis Refused Weight 263.126834708274 BP Diastolic BP Location Tested BP Systolic BP Type 77 115 Fetus Heart Rate Present Fetus Movement A Yes Comments Doing well. No contractions. Good movement. Encouraged to schedule pre admit. Planning induction on 09-24. Flowsheet Date 08/20/2020 Powers Score Blood Edema Fundus Height Fundus Units Glucose Ketones Leukocytes Nitrite Labor Signs Protein Cervic Dilation Cervic Effacement Cervic Station Type Weight in lbs Pre/Post Dialysis Refused BP Diastolic BP Location Tested BP Systolic BP Type Fetus Heart Rate Present Fetus Movement Comments Flowsheet Date 09/03/2020 Powers Score Blood Edema Fundus Height Fundus Units Glucose Ketones Leukocytes Nitrite Labor Signs Protein Cervic Dilation Cervic Effacement Cervic Station Type Weight in lbs Pre/Post Dialysis Refused BP Diastolic BP Location Tested BP Systolic BP Type Fetus Heart Rate Present Fetus Movement Comments Flowsheet Date 09/03/2020 Powers Score Blood Edema Fundus Height Fundus Units Glucose Ketones Leukocytes Nitrite Labor Signs Protein Cervic Dilation Cervic Effacement Cervic Station neg none trace 1cm Type Weight in lbs Pre/Post Dialysis Refused Weight 260.743070237162 BP Diastolic BP Location Tested BP Systolic BP Type 82 132 Fetus Heart Rate Present Fetus Movement A No Comments Occasional contractions. Pre admit scheduled. Labor precautions given. Flowsheet Date 09/10/2020 Powers Score Blood Edema Fundus Height Fundus Units Glucose Ketones Leukocytes Nitrite Labor Signs Protein Cervic Dilation Cervic Effacement Cervic Station none 38 1cm Type Weight in lbs Pre/Post Dialysis Refused Weight 261.80495552693 BP Diastolic BP Location Tested BP Systolic BP Type 78 118 Fetus Heart Rate Present A 140 Fetus Movement A Yes Comments Doing well. Labor precaution s discussed. Pre admit scheduled. Flowsheet Date 09/18/2020 Powers Score Blood Edema Fundus Height Fundus Units Glucose Ketones Leukocytes Nitrite Labor Signs Protein Cervic Dilation Cervic Effacement Cervic Station neg none 38 trace 1cm 60% -2 Type Weight in lbs Pre/Post Dialysis Refused Weight 263.876206935905 BP Diastolic BP Location Tested BP Systolic BP Type 77 129 Fetus Heart Rate Present A 144 Fetus Movement A Yes Comments patient is having some contr actions, cramping, discharge and swelling. precautions reviewed Menstrual History Last Menstrual Date Menses Monthly On Bcp Conception Prior Menses Frequency Hcg Plus Date Menarche Onset Age Genetic Screening And Infection History Question Response Note Mental Retardation/Autism false Patient's Age Will Be 35 Years Or Older At Estim ated Date of Delivery false Thalassemia (Belarusian, Brazilian, Mediterranean, Or Background): MCV < 80 false Neural Tube Defect (Meningomyelocele, Spina Bifi da, Or Anencephaly) false Congenital Heart Defect false Down Syndrome false Lewis-Sachs (eg, Sabianism, Cajun, Kyrgyz-Marin) f alse Ami Disease false Sickle Cell Disease Or Trait () false Hemophilia Or Other Blood Disorders false Muscular Dystrophy false Cystic Fibrosis false Baraga's Chorea false Intellectual Disability/Autism false If Yes, Was Person Tested For Fragile X? false Other Inherited Genetic Or Chromosomal Disorder false Maternal Metabolic Disorder (eg, Type 1 Diabetes , PKU) false Patient Or Baby's Father Had A Child With Defects Not Listed Above false Recurrent Loss, Or A Stillbirth false Medications (including Suppl ements, Vitamins, Herbs, OTC Drugs), Illicit/Recreational Drugs, Alcohol false If Yes, Agent(s) And Strength/Dosage false Any Other Genetic History false Live With Someone With TB Or Exposed To TB false Patient Or Partner Has History Of Genital Herpes false Rash Or Viral Illness Since Last Menstrual Perio d false History Of STD, Gonorrhea, Chlamydia, HPV, Syphi lis false Other Infection History false History of HIV false History of Hepatitis false Prior GBS-infected child false Hemoglobinopathy Or Carrier false Other Structural Defect false Recent Travel History Outside of Country false Delivery Information Delivery Date Delivery Type Labor Anesthesia Weeks Gestation Incision Type Labor Labor Length Hrs Delivered By Post Complications Tubal Sterilization Discharge Date Comments 1 Induce d Regional-Ep idural 39 false [place], Anurag CNM Polyhydra mnios & LGA & Post Hemorrhag e Discharge Information Feeding Method Contraceptive Method Maternal HG B and HCT Levels Ob Episode Information Episode Created Date Number of Fetuses Patient Bloodtype Patient rh Status Prepregnancy Weight lbs Domestic Partner Domestic Partner Phone Father Name Iron Pellet Tester Status 01/05/20 24 1 O 252 Singhisabel Edwards un OPEN Fetus Data First Name Last Name Admitted to NICU Weight (g) Sex Living Outcome Pediatric Complications Fetus ID Race Codes Race Delivery Type [id number] Problems Problem Notes 30w growth + testi ng at 34w d/t BMI. q4 growth Problem Name Start Date End Date Resolution Snomed Code Not e Anxiety [id number] Body mass index 40+ - severely obese [id number] antental test ing at 34wks hemorrhage 05505566 first delivery Large for gestation age fetus [id number] history Timothy Calculation Initial Timothy Date Initial Exam Date Initial Exam Provider Initial Ultrasound Date Last Menstrual Period Date Ultra Sound Weeks Gestation 05/13/2024 01/05/2024 Piper Da Silva 12/21/2023 08/14/2023 19 Eighteen To Twenty Week Timothy Update Ultra Sound Date Fundal Height At Umbil Quickening Date Ultra Sound Latest Weeks Gestation Final Timothy Confirmed By Final Timothy Confirmed Date Final Timothy Date Ultra Sound Latest Days Gestation 0 0 Pre- Flowsheet Flowsheet Date 01/05/2024 Powers Score Blood Edema Fundus Height Fundus Units Glucose Ketones Leukocytes Nitrite Labor Signs Protein Cervic Dilation Cervic Effacement Cervic Station neg none none trace Type Weight in lbs Pre/Post Dialysis Refused Weight 252.081911186647 BP Diastolic BP Location Tested BP Systolic BP Type 79 128 Fetus Heart Rate Present Fetus Movement A Yes Comments doing well, no bleeding sinc e 12/20 and subsequent US, anatomycomplete, +FM, begin routine antental care, precautions and education Flowsheet Date 02/01/2024 Powers Score Blood Edema Fundus Height Fundus Units Glucose Ketones Leukocytes Nitrite Labor Signs Protein Cervic Dilation Cervic Effacement Cervic Station neg none Type Weight in lbs Pre/Post Dialysis Refused 257.131757803097 BP Diastolic BP Location Tested BP Systolic BP Type 82 L arm 132 sitting Fetus Heart Rate Present A 140 Fetus Movement A Yes Comments Patient c/o of slight swelli ng hands, slight spotting. Good movement. Discussed GCT and labs for next visit. Will repeat growth US at 32 weeks due to hx of LGA fetuses and late entry to care. RTC 3-4 weeks. Flowsheet Date 02/18/2024 Powers Score Blood Edema Fundus Height Fundus Units Glucose Ketones Leukocytes Nitrite Labor Signs Protein Cervic Dilation Cervic Effacement Cervic Station neg none Type Weight in lbs Pre/Post Dialysis Refused Weight 262.936411963814 BP Diastolic BP Location Tested BP Systolic BP Type 81 L arm 121 sitting Fetus Heart Rate Present Fetus Movement A Yes Comments Patient c/o of slight nausea and cramping. Good movement. Rare episodes of spotting, nothing significant. GCT and labs today. Traveling to [place] for [place], discussed travel precautions. RTC 2 weeks, will recheck growth given hx of LGA fetus. Flowsheet Date 03/08/2024 Powers Score Blood Edema Fundus Height Fundus Units Glucose Ketones Leukocytes Nitrite Labor Signs Protein Cervic Dilation Cervic Effacement Cervic Station Type Weight in lbs Pre/Post Dialysis Refused BP Diastolic BP Location Tested BP Systolic BP Type Fetus Heart Rate Present Fetus Movement Comments Flowsheet Date 03/08/2024 Powers Score Blood Edema Fundus Height Fundus Units Glucose Ketones Leukocytes Nitrite Labor Signs Protein Cervic Dilation Cervic Effacement Cervic Station Type Weight in lbs Pre/Post Dialysis Refused BP Diastolic BP Location Tested BP Systolic BP Type 75 L arm 112 sitting Fetus Heart Rate Present Fetus Movement Comments +FM, reviewed US and efw, ok for rsv tdap, pt declines, precautions and education f/u 2 weeks for testing Flowsheet Date 03/29/2024 Powers Score Blood Edema Fundus Height Fundus Units Glucose Ketones Leukocytes Nitrite Labor Signs Protein Cervic Dilation Cervic Effacement Cervic Station Type Weight in lbs Pre/Post Dialysis Refused BP Diastolic BP Location Tested BP Systolic BP Type Fetus Heart Rate Present Fetus Movement Comments Flowsheet Date 03/29/2024 Powers Score Blood Edema Fundus Height Fundus Units Glucose Ketones Leukocytes Nitrite Labor Signs Protein Cervic Dilation Cervic Effacement Cervic Station Type Weight in lbs Pre/Post Dialysis Refused Weight 265.517217235593 BP Diastolic BP Location Tested BP Systolic BP Type 79 123 Fetus Heart Rate Present Fetus Movement Comments Flowsheet Date 03/29/2024 Powers Score Blood Edema Fundus Height Fundus Units Glucose Ketones Leukocytes Nitrite Labor Signs Protein Cervic Dilation Cervic Effacement Cervic Station neg trace Type Weight in lbs Pre/Post Dialysis Refused 265.112086944293 BP Diastolic BP Location Tested BP Systolic BP Type 79 123 Fetus Heart Rate Present Fetus Movement A Yes Comments Patient is having pain, pres sure, discharge, spotting and swelling. +FM footling breech, bpp 10/ discussed spinning babies, chiropractor and moxibustion precautions and education f/u 2 1 week Flowsheet Date 04/05/2024 Powers Score Blood Edema Fundus Height Fundus Units Glucose Ketones Leukocytes Nitrite Labor Signs Protein Cervic Dilation Cervic Effacement Cervic Station Type Weight in lbs Pre/Post Dialysis Refused Weight 266.828402601712 BP Diastolic BP Location Tested BP Systolic BP Type 80 117 Fetus Heart Rate Present Fetus Movement Comments Flowsheet Date 04/05/2024 Powers Score Blood Edema Fundus Height Fundus Units Glucose Ketones Leukocytes Nitrite Labor Signs Protein Cervic Dilation Cervic Effacement Cervic Station Type Weight in lbs Pre/Post Dialysis Refused BP Diastolic BP Location Tested BP Systolic BP Type Fetus Heart Rate Present Fetus Movement Comments Flowsheet Date 04/05/2024 Powers Score Blood Edema Fundus Height Fundus Units Glucose Ketones Leukocytes Nitrite Labor Signs Protein Cervic Dilation Cervic Effacement Cervic Station neg trace Type Weight in lbs Pre/Post Dialysis Refused 266.327628262617 BP Diastolic BP Location Tested BP Systolic BP Type 80 117 Fetus Heart Rate Present Fetus Movement A Yes Comments Patient is having some swell ing. Flowsheet Date 04/19/2024 Powers Score Blood Edema Fundus Height Fundus Units Glucose Ketones Leukocytes Nitrite Labor Signs Protein Cervic Dilation Cervic Effacement Cervic Station Type Weight in lbs Pre/Post Dialysis Refused Weight 272.284397424817 BP Diastolic BP Location Tested BP Systolic BP Type 80 127 Fetus Heart Rate Present Fetus Movement Comments Flowsheet Date 04/19/2024 Powers Score Blood Edema Fundus Height Fundus Units Glucose Ketones Leukocytes Nitrite Labor Signs Protein Cervic Dilation Cervic Effacement Cervic Station Type Weight in lbs Pre/Post Dialysis Refused BP Diastolic BP Location Tested BP Systolic BP Type Fetus Heart Rate Present Fetus Movement Comments Flowsheet Date 04/19/2024 Powers Score Blood Edema Fundus Height Fundus Units Glucose Ketones Leukocytes Nitrite Labor Signs Protein Cervic Dilation Cervic Effacement Cervic Station Type Weight in lbs Pre/Post Dialysis Refused 272.210325103138 BP Diastolic BP Location Tested BP Systolic BP Type 80 127 Fetus Heart Rate Present Fetus Movement A Yes Comments Patient is having some disch arge. Bpp 10/10 +FM ,doing well precautions and education gbs collected, declined cervical exam Flowsheet Date 04/26/2024 Powers Score Blood Edema Fundus Height Fundus Units Glucose Ketones Leukocytes Nitrite Labor Signs Protein Cervic Dilation Cervic Effacement Cervic Station Type Weight in lbs Pre/Post Dialysis Refused Weight 272.076904677452 BP Diastolic BP Location Tested BP Systolic BP Type 77 139 Fetus Heart Rate Present Fetus Movement Comments Flowsheet Date 04/26/2024 Powers Score Blood Edema Fundus Height Fundus Units Glucose Ketones Leukocytes Nitrite Labor Signs Protein Cervic Dilation Cervic Effacement Cervic Station Type Weight in lbs Pre/Post Dialysis Refused BP Diastolic BP Location Tested BP Systolic BP Type Fetus Heart Rate Present Fetus Movement Comments Flowsheet Date 04/26/2024 Powers Score Blood Edema Fundus Height Fundus Units Glucose Ketones Leukocytes Nitrite Labor Signs Protein Cervic Dilation Cervic Effacement Cervic Station neg trace Type Weight in lbs Pre/Post Dialysis Refused 272.461979774566 BP Diastolic BP Location Tested BP Systolic BP Type 77 139 Fetus Heart Rate Present Fetus Movement A Yes Comments Patient is having discharge and swelling. vertex bpp 8/8 +FM IOL 05/15 at 0500. precautions and education f/u one week Flowsheet Date 05/03/2024 Powers Score Blood Edema Fundus Height Fundus Units Glucose Ketones Leukocytes Nitrite Labor Signs Protein Cervic Dilation Cervic Effacement Cervic Station Type Weight in lbs Pre/Post Dialysis Refused BP Diastolic BP Location Tested BP Systolic BP Type Fetus Heart Rate Present Fetus Movement Comments Flowsheet Date 05/03/2024 Powers Score Blood Edema Fundus Height Fundus Units Glucose Ketones Leukocytes Nitrite Labor Signs Protein Cervic Dilation Cervic Effacement Cervic Station Type Weight in lbs Pre/Post Dialysis Refused BP Diastolic BP Location Tested BP Systolic BP Type Fetus Heart Rate Present Fetus Movement Comments Flowsheet Date 05/03/2024 Powers Score Blood Edema Fundus Height Fundus Units Glucose Ketones Leukocytes Nitrite Labor Signs Protein Cervic Dilation Cervic Effacement Cervic Station neg trace Type Weight in lbs Pre/Post Dialysis Refused 280.67495986487 BP Diastolic BP Location Tested BP Systolic BP Type 79 128 Fetus Heart Rate Present Fetus Movement A Yes Comments Patient is having some disch arge and swelling. efw 77% vertex, declines IOL at 39 wants to wait until 05/15, precautions and education f/u one week Flowsheet Date 05/10/2024 Powers Score Blood Edema Fundus Height Fundus Units Glucose Ketones Leukocytes Nitrite Labor Signs Protein Cervic Dilation Cervic Effacement Cervic Station Type Weight in lbs Pre/Post Dialysis Refused BP Diastolic BP Location Tested BP Systolic BP Type Fetus Heart Rate Present Fetus Movement Comments Flowsheet Date 05/10/2024 Powers Score Blood Edema Fundus Height Fundus Units Glucose Ketones Leukocytes Nitrite Labor Signs Protein Cervic Dilation Cervic Effacement Cervic Station Type Weight in lbs Pre/Post Dialysis Refused BP Diastolic BP Location Tested BP Systolic BP Type Fetus Heart Rate Present Fetus Movement Comments Flowsheet Date 05/10/2024 Powers Score Blood Edema Fundus Height Fundus Units Glucose Ketones Leukocytes Nitrite Labor Signs Protein Cervic Dilation Cervic Effacement Cervic Station neg trace 3cm 40% -3 Type Weight in lbs Pre/Post Dialysis Refused Weight 277.937879279810 BP Diastolic BP Location Tested BP Systolic BP Type 84 129 Fetus Heart Rate Present Fetus Movement A Yes Comments Patient is having BH contrac tions and swelling. IOL 05/15 bpp 10/06, education and precautions +FM Menstrual History Last Menstrual Date Menses Monthly On Bcp Conception Prior Menses Frequency Hcg Plus Date Menarche Onset Age 0608/14/2021 Delivery Information Delivery Date Delivery Type Labor Anesthesia Weeks Gestation Incision Type Labor Labor Length Hrs Delivered By Post Complications Tubal Sterilization Discharge Date Comments Discharge Information Feeding Method Contraceptive Method Maternal HG B and HCT Levels
--- OUTSIDE RECORDS SUMMARY | 2024-05-15 05:15 | XMS_ITS | Referral Summary ---
Author Organization [facility] Address [address] [place] [address] Care Team Providers Care Vice President [employer] Name Role Phone Stanley Patrick MD Primary Care Provider [phone] Source Comments [facility],non-owned Affiliates and Associated Physician Practices is amultiple site organization consisting of ambulatory clinics and hospital sitesin [place], [place], [place] and [place]. This disclosure is being madepursuant to the Care Everywhere program and may not contain all information available regarding this patient. Last updated 17.[facility] Allergies Active Allergy Reactions Criticality Noted Date [...] Comments Blood Pressure 107/65 02/07/2013 8:15 AM RESEARCH ARCHAEOLOGIST Pulse 100 02/07/2013 11:55 AM RESEARCH ARCHAEOLOGIST Temperature 36.1 C (97 F) 02/07/2013 11:55 AM RESEARCH ARCHAEOLOGIST Respiratory Rate 18 02/07/2013 11:55 AM RESEARCH ARCHAEOLOGIST Oxygen Saturation 98% 02/07/2013 11:55 AM RESEARCH ARCHAEOLOGIST Inhaled Oxygen Concentration 100% 02/06/2013 4 :50 AM RESEARCH ARCHAEOLOGIST Weight 68 kg (150 lb) 02/04/2013 3:54 PM RESEARCH ARCHAEOLOGIST Height - - Body Mass Index - - Plan of Treatment Not on file Medical Devices Implanted Type Area Supervisor [employer] Device Identifier Shelf Expiration Date Model / Serial / Lot Trigen Trochanteric Antegrade Nail Implanted:Qty: 1 on 02/04/2013 by Katie Ardon MD at [facility] Nail Right: Femur 11/29/2020 [id number] / / [id number] Description:11.5 MM X 38 CM , 130 DEGREE Trigen L-P Screw Implanted:Qty: 1 on 02/04/2013 by Katie Ardon MD at [facility] Screw Right: Femur 03/01/2022 [id number] / / [id number] Description:5.0 MM X 67.5 MM Trigen L-P Screw 5.0 Mm X 45 Mm Implanted:Qty: 1 on 02/04/2013 by Katie Ardon MD at [facility] Screw Right: Femur 05/30/2022 [id number] / / [id number] Explanted Type Area Supervisor [employer] Device Identifier Shelf Expiration Date Model / Serial / Lot Pin Guide Ton Pnt 3.2mm X 343mm Explanted:Qty: 1 on 02/04/2013 by Katie Ardon MD at [facility] Right: Femur 09/29/2022 [id number] / / [id number] Care Teams Vice President [employer] Relationship Specialty Start Date End Date Stanley Patrick MD PCP - General Internal Medicine 02/04/13
[2024-05-15] MEDS: LACTATED RINGERS 1,000 ML 125 ML IV CONT (06:52)
[2024-05-15] MEDS: OXYTOCIN 30 UNITS/NS 500 ML 30 UNITS/500 ML BAG IV CONT (06:53)
[2024-05-15 07:00] LABS: Basophils Percent Auto 0.2 % (0.2-1.2); Eosinophils Absolute Auto 0.1 K/mm3 (0-0.3); Eosinophils Percent Auto 0.7 % (0-4.4); Hematocrit 33.9 % (37.0-47.0); Hemoglobin 10.6 g/dL (12.0-15.0); Immature Granulocyte Absolute 0.08 K/mm3 (0.00-0.031); Lymphocytes Absolute Auto 2.21 K/mm3 (0.9-3.2); Lymphocytes Percent Auto 27.1 % (18.3-44.2); Mean Corpuscular HGB Conc 31.3 g/dl (32-36); Mean Corpuscular Hemoglobin 24.3 pg (26-34); Mean Corpuscular Volume 77.8 fl (80-100); Mean Platelet Volume 10.8 fl (7.4-10.4); Monocytes Absolute Auto 0.8 K/mm3 (0.1-0.6); Platelet Count Result 230 k/mm3 (150-375); Red Blood Count 4.36 M/mm3 (4.2-5.4); Red Cell Distribution Width 15.3 % (11.5-14.5); White Blood Count 8.1 K/mm3 (4.5-10.0)
--- NOTE | 2024-05-15 07:53 | WPDOBADMIT ---
Obstetrics - Admit Note Admission Note: record reviewed. No pertinent additions to the history and/or any subsequent changes in the physical findings that are not consistent with the expected course of the were found. Additions to the history and/or subsequent changes in the physical findings follow. admit for IOL, hx LGA and hemorrhage, SVE /-2 AROM large amount of clear, odorless fluid, anticipate vaginal delivery
[2024-05-15 07:57] LABS: HIV 1/2 Ab P24 Ag Result Negative (Negative)
[2024-05-15 08:38] LABS: Syphilis IgG/IgM Antibody Negative (Negative)
--- NOTE | 2024-05-15 14:48 | PM.OBPRVD ---
OB - Vaginal Delivery Note Procedure Delivery date: 05/15/24 Induction method: AROM and Per Pitocin Protocol Delivery monitor: External FHT and External Uterine Route of delivery: Episiotomy description: None Laceration Description: None Specimen: No Quantitative Blood Loss (ml): 150 Anesthesia type: Epidural Disposition: Floor Complications: No immediate complications Baby Date of : 05/15/24 Time of : 14:37 Gestational Age by Date: 40 gender: Female Weight (pounds): 8 Weight (ounces): 15 presentation: vertex position: Left Occiput Posterior Placenta delivery description: Spontaneous Cord Vessel Description: 3 Vessels, Nuchal Cord (x1) and Around Body (x1) score one minute: 8 score five minutes: 9
[2024-05-15] MEDS: OXYTOCIN 30 UNITS/NS 500 ML 30 UNITS/500 ML BAG 125 UNITS IV CONT ×2 (15:10→16:35)
[2024-05-15] MEDS: IBUPROFEN 600 MG TABLET PO (15:52)
[2024-05-15] MEDS: miSOPROStol 200 MCG TABLET 1000 MCG (16:05)
[2024-05-15] MEDS: METHYLERGONOVINE MALEATE 0.2 MG/ML VIAL IM (16:05)
[2024-05-16 04:51] LABS: Hematocrit 28.4 % (37.0-47.0); Hemoglobin 8.8 g/dL (12.0-15.0)
[2024-05-16 07:32] VITALS: BP 121/76; PULSE 95; RESP 18; TEMP 36.1; O2SAT 98
[2024-05-16] MEDS: ACETAMINOPHEN 325 MG TABLET 650 MG PO (08:14)
[2024-05-16] MEDS: MULTIVIT/MIN/PREN/FOL AC/IRON TABLET 1 TAB PO (08:15)
[2024-05-16] MEDS: POLYSACCHARIDE IRON COMPLEX 150 MG CAPSULE PO (08:15)
[2024-05-16] MEDS: DOCUSATE SODIUM 100 MG CAPSULE PO (08:15)
--- NOTE | 2024-05-16 08:57 | P.PNOB_ITS ---
OB - PN: Subj Subjective Date/time seen: 05/16/24 08:57 Interval history: p day 1 doing well desires to go home OB - PN: Obj Data Labs 05/16/24 04:20 Labs: Laboratory Results - last 24 hr 05/16/24 04:20 Hgb 8.8 L Hct 28.4 L OB - PN A/P Plan day: 1 Plan: routine care and discharge home Time Spent With Patient Time: Total time spent is greater than 50% in coordination of care (as documented) at patient's floor/unit and/or counseling patient: Review of Systems 2 Review of Systems: All systems reviewed & are unremarkable except as noted in HPI and below Exam 2 Const: General: cooperative and healthy appearing Neck: Neck: normal visual inspection Chest: Chest palpation & inspection: normal inspection of the chest Resp: Effort & Inspection: normal respiratory effort Cardio: Rate: regular rate GI: Inspection: normal to inspection
--- NOTE | 2024-05-16 09:00 | PM.OBDSVD ---
DS: Admitting Diagnosis Discharge Date 05/16/24 Admitting Diagnosis IOL DS: Discharge Diagnosis Discharge Diagnosis (1) Vaginal delivery: Code(s): O80 - Encounter for full-term uncomplicated delivery Status: Acute OB - DS: Summary OB Procedures : None OB Procedures Intrapartum: Spontaneous Vag Delivery OB Procedures: : None Peripartum Data Laceration Description: None Episiotomy description: None Time Spent with Patient Time attestation: Total time spent providing and/or coordinating discharge services: DS: Data Data Completed and Pending Labs on day of discharge: Labs from last 24 hours 05/16/24 04:20 Hgb 8.8 L Hct 28.4 L Discharge Plan Discharge Attending physician on discharge: Juan Schaefer Discharging Clinician: Piper Da Silva Patient Disposition: Home, Self-Care Activity: pelvic rest Diet: regular Patient Instructions: Antibiotic Form Patient Language: Occitan Stand Alone Forms: General Discharge Information Follow-up/Referrals: Piper Da Silva CNM [Certified Nurse Core Analysis Operator] - 4 Weeks Discharge Medications: Continued PNV [id number] [] 28 mg iron- 800 mcg Tablet 1 tablet PO DAILY Date of admission: 05/15/24 05:02 Primary Care Provider: Stanley Patrick Admitting Provider: Juan Schaefer Attending physician on admission: Juan Schaefer Condition: Stable
--- NOTE | 2024-05-16 10:16 | PC.NURSE ---
0810: Introductions were made, discussed with patient her intentions for feeding infant. At this time, mother has stated that she would like to bottle feed infant with formula and will call this RN if she decides to pump and/or nurse infant.
[2024-05-16] MEDS: IBUPROFEN 600 MG TABLET PO (12:24)
[2024-05-16 12:25] VITALS: BP 121/80; PULSE 97; RESP 18; TEMP 36.7; O2SAT 97
== END 2024-05-16 15:51 | disposition home or self-care (01) | DRG 807 ==
LOC: ANHLDR 05:12 → ANHOB2 17:51
PROVIDERS: Admitting Provider Obstetrics & Gynecology; PCP Internal Medicine; Referring Provider Advanced Practice Midwife; Visit Provider Obstetrics & Gynecology
DX: O69.81X0 Labor and delivery complicated by cord around neck, without compression, not applicable or unspecified (principal); Z37.0 Single live birth; Z3A.40 40 weeks gestation of pregnancy
CPT/HCPCS: 36415; 85014; 85018; 85025; 86593; 86703; 86850; 86900; 86901; A9270; G0432; J2210; J2590; J7120